=== PATIENT | female | born 1940 | race African-American/Black ===

== ENCOUNTER 2016-09-08 20:47 | Inpatient (IN) ==
[2016-09-08] MEDS ORDERED: DEXAMETHASONE 4 MG/1 ML VIAL IM STA (21:33)
[2016-09-08] MEDS ORDERED: ALBUTEROL 2.5 MG/3 ML NEB RESP TX STA (21:33)
[2016-09-08] MEDS ORDERED: cloNIDine 0.1 MG TABLET PO STA (21:35)
--- NOTE | 2016-09-08 21:38 | Emergency Department Note ---
Maye Brown Hilary, am scribing for, and in the presence of, Rob Tovar MD 21:36. Guy Brown Robert M, MD, personally performed the services described in this documentation, ascribed by Netta Villavicencio in my presence, and it is both accurate and complete . Arrival - Arrival Chief Complaint: Blood Pressure Stated Complaint: shortness of breath ED Nursing Triage Note: Patient is a transfer patient from [facility] for further evaluation of CHF exacerbation. Patients BNP was 6401 at [facility]. Patient has +3 pitting edema to bilateral lower extremities and elevated blood pressure. History of DM, HTN, CVA with right sided weakness, and high cholesterol. Mode of Arrival: Stretcher Limitations: No Limitations Source: Patient, RN Notes Reviewed - History of Present Illness HPI Narrative: Pt is a 76 y/o female brought into the ED via EMS from [facility] for further evaluation of CHF. Pt confirms wheezing and swelling in her feet but denies chest pain. Pts family states that her blood pressure was elevated. Pt has a PMHx of DM, HTN, CVA with right sided weakness, and high cholesterol. No other complaint or problems stated in the ED. Onset (ago): day(s) Consistency: constant Severity: mild Severity scale (1-10): 1 Date of Last Menstrual Period: menopause Allergies/Adverse Reactions: Allergies Allergy/AdvReac Type Severity Reaction Status Date / Time meperidine [From Demerol] AdvReac Severe NUMBNESS Verified 11/02/15 00:30 codeine AdvReac Intermediate Vomiting Verified 11/02/15 00:30 Home Medications: Home Medications Medication Instructions Recorded Confirmed Type Albuterol Neb [Proventil Neb] 0.63 mg RESP TX Q12H 11/02/15 11/04/15 History Fluticasone/Salmeterol 250-50 1 puff INH BID 11/02/15 11/04/15 History [Advair 250-50] Ipratropium/Albuterol Inhaler 1 puff INH BID 11/02/15 11/04/15 History [Combivent Respimat Inhaler] Magnesium 250 mg PO DAILY 11/02/15 11/04/15 History Metformin HCl 1,000 mg PO BID 11/02/15 11/04/15 History Metoprolol Tartrate 50 mg PO BID 11/02/15 11/04/15 History Mirtazapine [Remeron] 30 mg PO BEDTIME 11/02/15 11/04/15 History Mometasone 50 Mcg Nasal [place] 2 sprays BOTH NARES DAILY 11/02/15 11/04/15 History [Nasonex Nasal [place]] Montelukast Tab [Singulair Tab] 10 mg PO BEDTIME 11/02/15 11/04/15 History Pravastatin Sodium 40 mg PO DAILY 11/02/15 11/04/15 History Acetaminophen Tab [Tylenol Tab] 325 mg PO Q4H PRN #0 tablet 11/04/15 11/04/15 Rx Apixaban [Eliquis] 5 mg PO BID tablet 11/04/15 11/04/15 Rx Dextrose 50% [D50] 25 gm IV PRN PRN #0 vial 11/04/15 11/04/15 Rx Glucagon 1 mg IM PRN PRN #0 vial 11/04/15 11/04/15 Rx Pantoprazole Tab [Protonix Tab] 40 mg PO DAILY tablet 11/04/15 11/04/15 Rx Meloxicam [Mobic] 7.5 mg PO BID #60 tablet 11/13/15 Rx amLODIPine [Norvasc] 10 mg PO BID #60 tablet 11/13/15 Rx cloNIDine TAB [Catapres Tab] 0.1 mg PO BID #60 tablet 11/13/15 Rx glipiZIDE XL [Glucotrol Xl] 2.5 mg PO DAILY tablet 11/13/15 Rx Review of System - Review of System 12 point system: reviewed and no additional remarkable complaints except as stated - Review of System Constitutional: Absent: fever Respiratory: Present: wheezing, other (bronchitis) Cardiovascular: Absent: chest pain Musculoskeletal: Present: other (pedal edema) Medical,Surgical,& Family Hx - Medical History Cardio: History of: Hypertension, [place] (5 years ago per pt) HEENT: History of: Eye Problem (cataract surgery to right eye), Dental Problems (wears dentures) Endocrine: History of: Diabetes Mellitus (NIDDM) (po meds at home), Dyslipidemia Respiratory: History of: Bronchitis (hx of) Musculoskeletal: History of: Back/Neck Problems, Musculoskeletal Problems ( knees give out at times) Other: History of: Miscellaneous Medical Problems (morbid obesity) - Surgical History Reproductive Surgeries: Surgical HX of;: Tubal Ligation - Family History Family History: Reports;: Family Diabetes, Family Hypertension (parents) - Social History Smoking Status: Never smoker Frequency of Alcohol Use: None Type of Drug Use: None Exam Vital Signs: Vital Signs Temperature 97.3 F L 09/08/16 20:49 Pulse Rate 86 09/08/16 20:49 Respiratory Rate 22 09/08/16 20:49 Blood Pressure 242/101 09/08/16 20:49 O2 Sat by Pulse Oximetry 100 09/08/16 20:49 - General General appearance: alert, in no apparent distress - Head Head exam: Present: atraumatic, normocephalic - Eye Eye exam: Present: normal appearance, PERRL, EOMI - ENT ENT exam: Present: mucous membranes moist, TM's normal bilaterally. Absent: mucous membranes dry - Neck Neck exam: Present: full ROM, trachea midline. Absent: tenderness - Chest Chest inspection: Present: symmetric chest wall rise. Absent: tenderness - Respiratory Respiratory exam: Present: rhonchi, wheezes - Cardiovascular Cardiovascular exam: Present: regular rate, normal rhythm, normal heart sounds. Absent: murmur, rubs, gallop - Abdominal Exam Abdominal exam: Present: soft, normal bowel sounds. Absent: distention, tenderness - Extremities Exam Extremities exam: Present: full ROM, pedal edema. Absent: tenderness - Back Exam Back exam: Present: full ROM. Absent: tenderness - Neurological Exam Neurological exam: Present: alert, oriented X3, CN II-XII intact. Absent: motor sensory deficit - Psychiatric Psychiatric exam: Present: normal affect, normal mood - Skin Skin exam: Present: warm, dry, intact, normal color. Absent: rash Course - Consultations Consultation #1: Dr. Kt Wong will evaluate and admit the patient. Time: 22:24 Disposition Clinical Impression: Uncontrolled hypertension, Dyspnea, Diabetes type 2, controlled Case discussed with: patient, patient's family Disposition: Still a Patient Condition: Stable Time of Disposition: 22:25
[2016-09-08] MEDS ORDERED: cloNIDine 0.1 MG TABLET ONE (22:03)
[2016-09-08] MEDS ORDERED: DEXAMETHASONE 4 MG/1 ML VIAL ONE (22:04)
[2016-09-08 23:17] LABS: Troponin I Only 0.444 NG/ML (0.00-0.045)
[2016-09-08] MEDS ORDERED: LABETALOL 20 MG/4 ML SYRINGE IV STA (23:31)
[2016-09-09] MEDS ORDERED: LABETALOL 20 MG/4 ML SYRINGE IV ONE ×3 (00:08→14:07)
[2016-09-09] MEDS ORDERED: INSULIN REGULAR 100 UNIT/ML SUBCUT ONE (00:27)
[2016-09-09] MEDS ORDERED: POTASSIUM CHLORIDE 20 MEQ TABLET PO PRN (00:27)
[2016-09-09] MEDS ORDERED: MAGNESIUM SULF RIDER 2 GM in PREMIX 1 EACH IV PRN ×2 (00:30→09:44)
[2016-09-09] MEDS ORDERED: MAGNESIUM SULF RIDER 4 GM in PREMIX 1 EACH IV PRN (00:30)
--- NOTE | 2016-09-09 00:36 | Hospitalist History & Physical ---
Assessment and Plan (1) CHF (congestive heart failure) Status: Acute Current Visit: Yes (2) Diabetes type 2, controlled Status: Acute Assessment and plan: We will admit the patient our service. I cannot find a chest x-ray from outside facility need to order chest x-ray. I am going to diurese her. Going to draw serial troponins. Consult [facility] cardiology she is patient of Dr. Hines' s. Can continue home meds. Have some as needed hydralazine as needed for her blood pressure. Current Visit: Yes Qualifiers: Diabetes mellitus complication status: with neurologic complications Diabetes mellitus complication detail: with autonomic neuropathy Diabetes mellitus fci insulin use: without fci use Qualified Code(s): E11.43 - Type 2 diabetes mellitus with diabetic autonomic (poly)neuropathy (3) Dyspnea Status: Acute Current Visit: Yes (4) Uncontrolled hypertension Status: Acute Current Visit: Yes (5) Hypomagnesemia Status: Acute Current Visit: No (6) Lymphedema of extremity Status: Acute Current Visit: No History of Present Illness Chief complaint: Shortness of breath chest pain and lower extremity edema History of present illness: Ms. Rodriguez is a 76 year old female with past medical history significant for coronary artery disease, stroke, diabetes and reflux who went to [facility] because of chest pain. She is having a burning sensation on the left' s side of her chest the center of her chest and her left arm was hurting. Patient reports shortness of breath at night particularly when she lays down. At times she wakes up during the [place] short winded. She tries nebulizer at home. Without any results and went up to the [facility]. Patient was found to have an elevated blood pressure. Patient was subsequently sent over to our hospital. We have been working on getting her blood pressure under better control in the emergency room. She does not look in acute distress. She has had a mild bump in her troponins. I was consulted to admit her. Patient denies a history of heart failure. She does see Dr. Hines. Home Medications Medication Instructions Recorded Confirmed Type Albuterol Neb [Proventil Neb] 0.63 mg RESP TX Q12H 11/02/15 11/04/15 History Fluticasone/Salmeterol 250-50 1 puff INH BID 11/02/15 11/04/15 History [Advair 250-50] Ipratropium/Albuterol Inhaler 1 puff INH BID 11/02/15 11/04/15 History [Combivent Respimat Inhaler] Magnesium 250 mg PO DAILY 11/02/15 11/04/15 History Metformin HCl 1,000 mg PO BID 11/02/15 11/04/15 History Metoprolol Tartrate 50 mg PO BID 11/02/15 11/04/15 History Mirtazapine [Remeron] 30 mg PO BEDTIME 11/02/15 11/04/15 History Mometasone 50 Mcg Nasal [place] 2 sprays BOTH NARES DAILY 11/02/15 11/04/15 History [Nasonex Nasal [place]] Montelukast Tab [Singulair Tab] 10 mg PO BEDTIME 11/02/15 11/04/15 History Pravastatin Sodium 40 mg PO DAILY 11/02/15 11/04/15 History Acetaminophen Tab [Tylenol Tab] 325 mg PO Q4H PRN #0 tablet 11/04/15 11/04/15 Rx Apixaban [Eliquis] 5 mg PO BID tablet 11/04/15 11/04/15 Rx Dextrose 50% [D50] 25 gm IV PRN PRN #0 vial 11/04/15 11/04/15 Rx Glucagon 1 mg IM PRN PRN #0 vial 11/04/15 11/04/15 Rx Pantoprazole Tab [Protonix Tab] 40 mg PO DAILY tablet 11/04/15 11/04/15 Rx Meloxicam [Mobic] 7.5 mg PO BID #60 tablet 11/13/15 Rx amLODIPine [Norvasc] 10 mg PO BID #60 tablet 11/13/15 Rx cloNIDine TAB [Catapres Tab] 0.1 mg PO BID #60 tablet 11/13/15 Rx glipiZIDE XL [Glucotrol Xl] 2.5 mg PO DAILY tablet 11/13/15 Rx Allergies Allergy/AdvReac Type Severity Reaction Status Date / Time meperidine [From Demerol] AdvReac Severe NUMBNESS Verified 11/02/15 00:30 codeine AdvReac Intermediate Vomiting Verified 11/02/15 00:30 Medical,Surgical,& Family Hx - Medical History Cardio: History of: Hypertension, [place] (5 years ago per pt) HEENT: History of: Eye Problem (cataract surgery to right eye), Dental Problems (wears dentures) Endocrine: History of: Diabetes Mellitus (NIDDM) (po meds at home), Dyslipidemia Respiratory: History of: Bronchitis (hx of) Musculoskeletal: History of: Back/Neck Problems, Musculoskeletal Problems ( knees give out at times) Other: History of: Miscellaneous Medical Problems (morbid obesity) - Surgical History Reproductive Surgeries: Surgical HX of;: Tubal Ligation - Family History Family History: Reports;: Family Diabetes, Family Hypertension (parents) - Social History Smoking Status: Never smoker Frequency of Alcohol Use: None Type of Drug Use: None 12 point system: reviewed and no additional remarkable complaints except as stated Exam - Constitutional Vitals: Period Temp Pulse Resp BP Sys/[place] Pulse Ox Last 24 Hr 97.3 F 70-86 20-22 242/101 99-100 - General General appearance: alert, in no apparent distress - Head Head exam: Present: atraumatic, normocephalic - Eye Eye exam: Present: normal appearance, PERRL, EOMI - ENT ENT exam: Present: mucous membranes moist, TM's normal bilaterally. Absent: mucous membranes dry - Neck Neck exam: Present: full ROM, trachea midline. Absent: tenderness - Chest Chest inspection: Present: symmetric chest wall rise. Absent: tenderness - Respiratory Respiratory exam: Present: Grossly clear with mild wheezes - Cardiovascular Cardiovascular exam: Present: regular rate, normal rhythm, normal heart sounds. - Abdominal Exam Abdominal exam: Present: soft, normal bowel sounds - Extremities Exam Extremities exam: Present: Patient appears to have some element of lymphedema but does have lower extremity edema present - Back Exam Back exam: Present: full ROM. - Neurological Exam Neurological exam: Present: alert, oriented X3, CN II-XII intact. - Psychiatric Psychiatric exam: Present: normal affect, normal mood - Skin Skin exam: Present: warm, dry, intact, normal color. Results - Labs Labs: Labs from outside facility displayed a white count of 9.2 hemoglobin 10.3 hematocrit 31.5 platelets 467 glucose 131 BUN 24 creatinine 1.3 calcium 8.4 sodium 147 potassium 4.4 chloride 109 bicarb 25 CK 60 mm x 2.2 myoglobin 58 magnesium 1.0 troponin I 0.118
[2016-09-09] MEDS ORDERED: ALBUTEROL/IPRATROPIUM 3 ML NEB RESP TX PRN (00:47)
[2016-09-09] MEDS ORDERED: ZALEPLON 5 MG CAPSULE PO PRN (00:47)
[2016-09-09] MEDS ORDERED: hydrALAZINE 20 MG/1 ML VIAL ONE (01:56)
[2016-09-09] MEDS: hydrALAZINE 20 MG/1 ML VIAL IV PRN ×3 (02:00→18:08)
[2016-09-09 02:49] LABS: Risk Ratio 2.65; VLDL CHOLESTEROL 19.2 MG/DL
[2016-09-09] MEDS ORDERED: GLUCAGON 1 MG VIAL IM PRN (03:08)
[2016-09-09] MEDS ORDERED: DEXTROSE 50% 25 GM/50 ML VIAL IV PRN (03:08)
--- NOTE | 2016-09-09 03:16 | EKG Report ---
Stationary ECG Study [facility] ER Test Date: 09/08/2016 9:25:32 PM Pat Name: TRAVON HUSSEIN Department: Room: 285 Gender: F [place] Clerk: : 1940 Requested by: Rob Tovar Order Number: [id number] Reading MD: AMBER DELVALLE Intervals [place] Rate: 69 P: 40 WV: 171 QRS: 40 QRSD: 90 T: -54 QT: 415 QTc: 435 Interpretive Statements SINUS RHYTHM POOR R-WAVE PROGRESSION POOR QUALITY TRACING Electronically Signed On 09-10-16 15:56:29 CDT by AMBER DELVALLE [email or web address]
[2016-09-09] MEDS: NITROGLYCERIN 2% OINT 1 INCH/GM PACK TOP SCH ×3 (05:16→18:10)
[2016-09-09 06:08] LABS: Calcium 8.4 MG/DL (8.5-10.1); Potassium 4.5 MMOL/L (3.5-5.1)
[2016-09-09] MEDS: ALBUTEROL/IPRATROPIUM 3 ML NEB RESP TX SCH ×2 (07:25→21:16)
[2016-09-09] MEDS ORDERED: FUROSEMIDE 40 MG/4 ML VIAL IV SCH (08:00)
--- NOTE | 2016-09-09 08:20 | XRay Report ---
History is short of breath Comparison 09/08/2016 The heart and vessels are enlarged There are slight increasing diffuse bilateral interstitial and patchy pulmonary opacities. No more focal consolidation seen Tiny underlying effusions present Impression: Slight worsening of pulmonary edema PROCEDURE INTERPRETED AT [facility] DEPARTMENT OF RADIOLOGY Final Report Signed by: Dr. Madhavi Devries
--- NOTE | 2016-09-09 08:58 | EKG Report ---
Stationary ECG Study [facility] Test Date: 09/09/2016 9:01:23 AM Pat Name: TRAVON HUSSEIN Department: Room: 285 Gender: F Gold Buyer: : 1940 Requested by: Danny Deleon Order Number: [id number] Reading MD: AMBER DELVALLE Intervals [place] Rate: 76 P: 56 PA: 174 QRS: -42 QRSD: 91 T: 97 QT: 418 QTc: 449 Interpretive Statements SINUS RHYTHM MARKED LEFT AXIS DEVIATION POOR R-WAVE PROGRESSION Electronically Signed On 09-10-16 16:06:09 CDT by AMBER DELVALLE [email or web address]
[2016-09-09] MEDS ORDERED: hydrALAZINE 25 MG TABLET PO SCH (09:00)
[2016-09-09] MEDS ORDERED: PANTOPRAZOLE 40 MG TABLET PO SCH ×2 (09:00)
--- NOTE | 2016-09-09 09:24 | Cardiology Consult Note ---
Assessment and Plan - Time spent with patient Time spent with patient: Greater than 30 minutes (due to assessment, plan, and documentation) (1) Chest pain Status: Acute Assessment and plan: See plan of care listed below. Current Visit: Yes (2) CHF (congestive heart failure) Status: Acute Assessment and plan: See plan of care listed below. Current Visit: Yes Qualifiers: Congestive heart failure type: unspecified congestive heart failure type Congestive heart failure chronicity: unspecified congestive heart failure chronicity Qualified Code(s): I50.9 - Heart failure, unspecified (3) History of coronary artery disease Status: Chronic Assessment and plan: See plan of care listed below. Current Visit: Yes (4) Diabetes type 2, controlled Status: Chronic Assessment and plan: See plan of care listed below. Current Visit: Yes Qualifiers: Diabetes mellitus complication status: with neurologic complications Diabetes mellitus complication detail: with autonomic neuropathy Diabetes mellitus intermediate accountant insulin use: without intermediate accountant use Qualified Code(s): E11.43 - Type 2 diabetes mellitus with diabetic autonomic (poly)neuropathy (5) Uncontrolled hypertension Status: Acute Assessment and plan: See plan of care listed below. Current Visit: Yes (6) Hypomagnesemia Status: Acute Assessment and plan: See plan of care listed below. Current Visit: Yes (7) Obesity Status: Chronic Assessment and plan: See plan of care listed below. Current Visit: Yes History of Present Illness - Data of Consult Patient: new to practice (seen in the remote past by Dr. 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 Rodriguez is a 76 year old female with a history of diffuse small vessel CAD s/p NSTEMI, uncontrolled hypertension, type 2 diabetes mellitus , dyslipidemia, GERD, prior stroke. Last heart catheterization was 01/21/[address] Horn which revealed diffuse small vessel disease with epicardial stenosis in a branch of the diagonal approaching 70-80% and a mild smooth 20-30% stenosis in the proximal circumflex. On 11/02/15, echocardiogram revealed EF of 55%, moderate LVH, mild diastolic dysfunction, and trace to mild aortic insufficiency. She was transferred to our facility from [facility] for further evaluation of shortness of breath and chest pain. She was diagnosed with CHF and was noted to have a BNP of 907 on admission. We were consulted to see her. Ms. Sales tells me that she only takes Lasix but is unable to walk very well and changed her dose of Lasix that she was taking because it makes her pee too much. She also tells me that she believes she is developing bronchitis and has noticed some wheezing for the past 3 days. She reports that she takes at home nebulizer treatments which seemed to help this. She does admit that the day before yesterday she noticed a left chest wall burning sensation that lasted for a few minutes before going away on its own. This is accompanied by left arm pain that she reports felt like "arthritis." She reports she had an additional episode of chest discomfort yesterday that lasted close to an hour but improved when she took Tylenol and aspirin. She can identify no aggravating or alleviating factors. It is nonreproducible to movement, palpation, or deep breath. She tells me that this is not exactly similar to her last NH. Previously she notes that she had nausea and vomiting but has had none in the past several days. She reports associated symptoms of recent dizziness, easy fatigability, bilateral lower extremity edema, and palpitations. Since her arrival at [facility], she has had a steady rise in her troponin. Troponin peak this morning is 1.09. Her creatinine 0.9, potassium 4.5, magnesium 1.3. She is receiving IV magnesium replacement. Her blood pressure was 208/78 this morning. We will continue to adjust her medicines for optimal blood pressure control. ASSESSMENT/PLAN: 1. CHEST PAIN - She presents with some atypical features of chest pain; however , she has had a steady rise in her troponin with current peak of 1.09. Given her history and current presentation, it is felt that she would benefit from repeat cardiac catheterization to further evaluate her coronary anatomy. After discussing with Dr. Banegas, she will be scheduled for left heart cath with possible PCI today. 2. CHF - Echocardiogram is pending. Will continue offloading with diuretic therapy. 3. HISTORY OF CAD - Last heart catheterization was 01/21/[address] Horn which revealed diffuse small vessel disease with epicardial stenosis in a branch of the diagonal approaching 70-80% and a mild smooth 20-30% stenosis in the proximal circumflex. 4. UNCONTROLLED HTN - Will continue to monitor and adjust accordingly. 5. TYPE 2 DIABETES MELLITUS - She has been started on accuchecks ACHS with sliding scale insulin. 6. HYPOMAGNESEMIA - She has been started on IV magnesium replacement. 7. OBESITY - Chronic. CC: Sue King MD - Home Medications and Allergies Home Medications: Home Medications Medication Instructions Recorded Confirmed Type Fluticasone/Salmeterol 250-50 1 puff INH BID 11/02/15 09/09/16 History [Advair 250-50] Ipratropium/Albuterol Inhaler 1 puff INH BID 11/02/15 09/09/16 History [Combivent Respimat Inhaler] Magnesium 250 mg PO DAILY 11/02/15 09/09/16 History Metformin HCl 1,000 mg PO BID 11/02/15 09/09/16 History Metoprolol Tartrate 50 mg PO BID 11/02/15 09/09/16 History Mirtazapine [Remeron] 30 mg PO BEDTIME 11/02/15 09/09/16 History Mometasone 50 Mcg Nasal Crane 2 sprays BOTH NARES DAILY 11/02/15 09/09/16 History [Nasonex Nasal Crane] Montelukast Tab [Singulair Tab] 10 mg PO BEDTIME 11/02/15 09/09/16 History Pravastatin Sodium 40 mg PO DAILY 11/02/15 09/09/16 History Acetaminophen Tab [Tylenol Tab] 325 mg PO Q4H PRN #0 tablet 11/04/15 09/09/16 Rx Meloxicam [Mobic] 7.5 mg PO BID #60 tablet 11/13/15 09/09/16 Rx Aspirin 81 mg PO DAILY 09/09/16 09/09/16 History Cetirizine Tab [ZyrTEC Tab] 10 mg PO DAILY 09/09/16 09/09/16 History Clopidogrel [Plavix] 75 mg PO DAILY 09/09/16 09/09/16 History Furosemide 80 mg PO BID 09/09/16 09/09/16 History Gabapentin Cap/Tab [Neurontin 300 mg PO BEDTIME 09/09/16 09/09/16 History Cap/Tab] Gemfibrozil [Lopid] 600 mg PO BIDAC 09/09/16 09/09/16 History Losartan/Hydrochlorothiazide 1 each PO DAILY 09/09/16 09/09/16 History [Losartan-Hctz 100-12.5 mg Tab] Nabumetone [Relafen] 500 mg PO BID 09/09/16 09/09/16 History Omeprazole 20 mg PO DAILY 09/09/16 09/09/16 History Promethazine Tab [Phenergan Tab] 25 mg PO Q4H 09/09/16 09/09/16 History Ranitidine Tab [Zantac Tab] 150 mg PO DAILY 09/09/16 09/09/16 History Turmeric Root Extract [Turmeric] 150 mg PO DAILY 09/09/16 09/09/16 History cloNIDine TAB [Catapres Tab] 0.1 mg PO BEDTIME 09/09/16 09/09/16 History hydrALAZINE TAB [Apresoline Tab] 25 mg PO BID 09/09/16 09/09/16 History traZODone [Desyrel] 50 mg PO BEDTIME 09/09/16 09/09/16 History Allergies/Adverse Reactions: Allergies Allergy/AdvReac Type Severity Reaction Status Date / Time meperidine [From Demerol] AdvReac Severe NUMBNESS Verified 11/02/15 00:30 codeine AdvReac Intermediate Vomiting Verified 11/02/15 00:30 Review of systems: - Constitutional: Present: fatigue, As per HPI. Absent: anorexia, chills, daytime sleepiness, excessive sweating, fever(s), frequent falls, headache(s), increased appetite, lethargy, malaise, night sweats, stops breathing during sleep, weakness, weight gain, weight loss. - EENT Eyes: Present: As per HPI. Absent: blurry vision, diplopia, loss of vision Ears: Present: As per HPI. Absent: decreased hearing, ear discharge, ear pain Nose, mouth and throat: Present: nasal congestion, sinus pressure, As per HPI. Absent: dysphagia, epistaxis, headache(s), hoarseness, lip swelling, neck mass, neck pain, sore throat, throat swelling, tongue swelling, vertigo - Cardiovascular: Present: chest pain at rest, dyspnea, dyspnea on exertion, edema, palpitations, radiating jaw, neck or arm pain, as per HPI. Absent: chest pain with activity, claudication, diaphoresis, lightheadedness, orthopnea , PND - Respiratory: Present: dyspnea, dyspnea on exertion, cough, wheezing, as per HPI. Absent: hemoptysis, snoring, pain on inspiration - Gastrointestinal: Present: As per HPI. Absent: abdominal pain, bloating, change in bowel habits, constipation, diarrhea, heartburn, hematemesis, hematochezia, loose stools, melena, nausea, vomiting - Genitourinary: Present: As per HPI. Absent: difficulty urinating, dysuria, flank pain, hematuria, nocturia, urinary frequency, urinary incontinence - Musculoskeletal: Present: As per HPI. Absent: arthralgias, back pain, joint swelling, limited range of motion, muscle cramps, muscle weakness, myalgias - Neurological: Present: dizziness, As per HPI. Absent: abnormal gait, abnormal speech, behavioral changes, confusion, convulsions, disequilibrium, focal weakness, frequent falls, headache(s), memory loss, numbness, paresthesias, radicular pain, syncope, tremor(s) - Psychiatric: Present: As per HPI. Absent: anxiety, confusion, depression, panic attacks - Endocrine: Present: fatigue, As per HPI. Absent: cold intolerance, heat intolerance, polydipsia, polyphagia - Hematologic/Lymphatic: Present: As per HPI. Absent: easy bleeding, easy bruising, lymphadenopathy Medical,Surgical,& Family Hx - Medical History Cardio: History of: CAD (diffuse small vessel disease), Hypertension, NH (5 years ago per pt) HEENT: History of: Eye Problem (cataract surgery to right eye), Dental Problems (wears dentures) Endocrine: History of: Diabetes Mellitus (NIDDM) (po meds at home), Dyslipidemia Respiratory: History of: Bronchitis (hx of) Musculoskeletal: History of: Back/Neck Problems, Musculoskeletal Problems ( knees give out at times) Other: History of: Miscellaneous Medical Problems (morbid obesity) - Surgical History Reproductive Surgeries: Surgical HX of;: Tubal Ligation - Family History Family History: Reports;: Family Diabetes, Family Hypertension (parents) - Social History Smoking Status: Never smoker Frequency of Alcohol Use: None Type of Drug Use: None Marital Status: Lives With:: Children Functional capacity: uses cane/walker Physical Examination Vital Signs Temp Pulse Resp BP Pulse Ox 97.3 F L 86 22 242/101 100 09/08/16 20:49 07/19/17 20:49 09/08/16 20:49 09/08/16 20:49 09/08/16 20:49 Exam: General appearance: Pleasant and cooperative. Obese, no acute distress. - Head Head exam: Present: normal inspection, normocephalic, atraumatic. Absent: hematoma, laceration - Eye Eye exam: Present: EOMI. Absent: conjunctival injection, nystagmus, periorbital swelling, scleral icterus, laceration to eyelids Pupils: Present: PERRL. Absent: constricted, dilated, fixed, irregular, unequal - ENT ENT exam: Present: normal exam, normal external ear exam - Neck Neck exam: Present: normal inspection. Absent: lymphadenopathy, meningismus, tenderness, thyromegaly - Respiratory Respiratory exam: Present: Bibasilar rales posteriorly, otherwise clear to auscultation bilaterally. Absent: accessory muscle use, chest wall tenderness - Cardiovascular Cardiovascular exam: Present: regular rate and rhythm. Absent: carotid bruit, gallop, rubs, murmur - GI/Abdominal GI/Abdominal exam: Present: normal bowel sounds, soft. Absent: distended, firm , guarding, hernia, mass, tenderness, rebound. - Extremities Exam Extremities exam: Present: normal inspection, normal capillary refill. Upper extremity pulses 2+. Lower extremity pulses 2+, 3+ pitting edema. Absent: calf tenderness -Musculoskeletal Exam Musculoskeletal: Present: No Fluid Collection, No Pain, Normal Range of Motion - Back Exam Back exam: Present: normal inspection. Absent: muscle spasm, vertebral tenderness - Neurological Exam Neurological exam: Present: alert, oriented X3, grossly intact without resting or essential tremor - Psychiatric Psychiatric exam: Present: normal affect, normal mood - Skin Skin exam: Present: normal color, warm, dry, intact. Absent: cyanosis, diaphoretic, rash, urticaria Result/EKG - Labs CBC & BMP: 09/09/16 04:52 Lab Results: I have reviewed the past 24 hour labs Labs: Laboratory Results - last 24 hr 09/08/16 09/08/16 09/09/16 22:14 22:14 01:31 Sodium Potassium Chloride Carbon Dioxide Anion Gap BUN Creatinine GFR Calculation BUN/Creatinine Ratio Glucose POC Glucose Calculated Osmolality Calcium Magnesium Total Creatine Kinase 75 CK-MB (CK-2) 4.5 H Troponin I 0.444 H 0.892 H D B-Natriuretic Peptide 907 H Triglycerides Cholesterol LDL Cholesterol VLDL Cholesterol HDL Cholesterol Heart Disease Risk Ratio 09/09/16 09/09/16 09/09/16 01:31 01:31 04:52 Sodium Potassium Chloride Carbon Dioxide Anion Gap BUN Creatinine GFR Calculation BUN/Creatinine Ratio Glucose POC Glucose Calculated Osmolality Calcium Magnesium 1.3 L Total Creatine Kinase CK-MB (CK-2) Troponin I 0.951 H B-Natriuretic Peptide Triglycerides 96 Cholesterol 151 LDL Cholesterol 74.0 VLDL Cholesterol 19.2 HDL Cholesterol 57 Heart Disease Risk Ratio 2.65 09/09/16 09/09/16 09/09/16 04:52 06:50 07:25 Sodium 143 Potassium 4.5 Chloride 110 H Carbon Dioxide 22 Anion Gap 15.5 H BUN 28 H Creatinine 0.90 GFR Calculation 99 BUN/Creatinine Ratio 31.00 H Glucose 162 H POC Glucose 184 H Calculated Osmolality 294.0 Calcium 8.4 L Magnesium Total Creatine Kinase CK-MB (CK-2) Troponin I 1.090 H B-Natriuretic Peptide Triglycerides Cholesterol LDL Cholesterol VLDL Cholesterol HDL Cholesterol Heart Disease Risk Ratio - EKG EKG results: interpreted by me, sinus rhythm
--- NOTE | 2016-09-09 09:32 | Hospitalist Progress Note ---
Assessment and Plan (1) CHF (congestive heart failure) Status: Acute Assessment and plan: Continue diuresis with IV Lasix. Add Aldactone Echo October 2015 MPRESSIONS 1. Left ventricle is normal size and systolic function with ejection fraction 55%. There is at least moderate concentric left ventricular hypertrophy with mild diastolic dysfunction. 2. Other cardiac chambers overall are normal size. 3. There is some posterior mitral calcification but otherwise functioning normal. 4. Aortic valve is overall normal with trace to mild insufficiency. 5. There is no gross mass or thrombus noted that would be a source of emboli. Current Visit: Yes Qualifiers: Congestive heart failure type: unspecified congestive heart failure type Congestive heart failure chronicity: unspecified congestive heart failure chronicity Qualified Code(s): I50.9 - Heart failure, unspecified (2) Diabetes type 2, controlled Status: Acute Current Visit: Yes Qualifiers: Diabetes mellitus complication status: with neurologic complications Diabetes mellitus complication detail: with autonomic neuropathy Diabetes mellitus skilled nursing insulin use: without skilled nursing use Qualified Code(s): E11.43 - Type 2 diabetes mellitus with diabetic autonomic (poly)neuropathy (3) Hypertension Status: Acute Current Visit: No Qualifiers: Hypertension type: essential hypertension Qualified Code(s): I10 - Essential (primary) hypertension (4) Morbid obesity Status: Chronic Current Visit: Yes Hospitalist: Subjective Interval history: Patient seen and examined. No acute events overnight. Case discussed with nursing staff. Labs reviewed. The patient was seen and examined with her daughter at the bedside. She reports reducing her Lasix dose proximally 1-2 weeks ago to 80 mg once daily. She has been swelling and accumulating fluid since that time. Exam - Constitutional Vitals: Period Temp Pulse Resp BP Sys/Castañeda Pulse Ox Last 24 Hr 96.9 F-98.6 F 70-86 16-22 165-242/71-101 94-100 Exam: Constitutional System: No distress. No tremulousness. Morbidly obese Head: Normocephalic, atraumatic. Ears, Nose and Throat System: No pain or tenderness. No epistaxis or discharge Eyes System: Pupils equal, round, and reactive. Extraocular muscles intact. Neck: Supple, without adenopathy, No jugular venous distention. No thyromegaly, neck mass, or prior surgery apparent. Respiratory System: Chest rales at the bases to auscultation. Cardiovascular System: Heart with regular rate and rhythm. No murmur. GI System: Abdomen soft, nontender. Normo active bowel sounds present. Musculoskeletal System: limbs with 3+ pitting pedal edema. Full distal pulses. Neurological System: No discernable sensory deficit. No aphasia Psychiatric System: Conversation is rational Results - Labs CBC & BMP: 09/09/16 04:52 Lab Results: I have reviewed the past 24 hour labs - Diagnostic Findings Procedure: Chest x-ray: report reviewed by me
[2016-09-09] MEDS ORDERED: diphenhydrAMINE CAP 25 MG CAPSULE PO ONE (09:44)
[2016-09-09] MEDS ORDERED: POTASSIUM CHLORIDE RIDER 10 MEQ in PREMIX 1 EACH IV PRN (09:44)
[2016-09-09] MEDS ORDERED: DIAZEPAM 5 MG TABLET PO ONE (10:00)
[2016-09-09] MEDS ORDERED: SODIUM CHLORIDE 0.45% 1,000 ML IV SCH (10:00)
[2016-09-09] MEDS: FUROSEMIDE 40 MG/4 ML VIAL IV SCH ×2 (11:05→18:09)
[2016-09-09] MEDS: INSULIN REGULAR 100 UNIT/ML SUBCUT SCH ×4 (11:15→21:57)
[2016-09-09] MEDS ORDERED: LIDOCAINE 1% 20 ML VIAL ONE (12:26)
[2016-09-09] MEDS ORDERED: HEPARIN/NACL 0.9% 2 UNITS/ML 1,000 ML IV ONE (12:26)
[2016-09-09] MEDS: CLOPIDOGREL 75 MG TABLET PO SCH (13:08)
[2016-09-09] MEDS: FAMOTIDINE 20 MG TABLET PO SCH (13:09)
[2016-09-09] MEDS: PRAVASTATIN 40 MG TABLET PO SCH (13:09)
[2016-09-09] MEDS: ENOXAPARIN 40 MG/0.4 ML SYRINGE SUBCUT SCH (13:10)
[2016-09-09] MEDS: CETIRIZINE 10 MG TABLET PO SCH (13:10)
[2016-09-09] MEDS: ASPIRIN EC 81 MG TABLET PO SCH (13:10)
[2016-09-09] MEDS: LOSARTAN 50 MG TABLET PO SCH (13:10)
--- NOTE | 2016-09-09 13:17 | ECHO Report ---
Gerri Rodriguez Exam Date: 09/09/2016 07:30 Referring Physician: Technologist: Mindi Love RDCS Age: 76 Ht (in): 67 Wt (lb): 280 Gender: F Exam Location: [facility] Echo Indications: Chest pain, unspecified, Dyspnea, unspecified, Heart failure, unspecified, Essential (primary) hypertension, Edema, unspecified, NIDDM, CAD, Morbid (severe) obesity due to excess calories BP: 165 / 71 HR: 74 Rhythm: Sinus Technical Quality: IMPRESSIONS Normal chamber sizes 2+ concentric LVH Normal LV systolic function with ejection fraction estimated 55% without segmental wall motion mildly Mitral annular calcification 2-3+ aortic regurgitation 1+ tricuspid regurgitation with RVSP 43 mmHg plus RAP suggesting at least moderate pulmonary hypertension Grade 1 diastolic dysfunction MEASUREMENTS (Male / Female) Normal Values 2D ECHO LV Diastolic Diameter PLAX 4.8 cm 4.2 - 5.9 / 3.9 - 5.3 cm LV Systolic Diameter PLAX 3.4 cm LV Fractional Shortening PLAX 29.3 % IVS Diastolic Thickness 1.6 cm 0.6 - 1.0 / 0.6 - 0.9 cm LVPW Diastolic Thickness 1.6 cm 0.6 - 1.0 / 0.6 - 0.9 cm RV Internal Dim ED PLAX 3.2 cm Aortic Root Diameter 3.0 cm LA Systolic Diameter LX 3.9 cm 3.0 - 4.0 / 2.7 - 3.8 cm DOPPLER TR Peak Velocity 413.0 cm/s TR Peak Gradient 68.2 mmHg FINDINGS Left Ventricle Normal left ventricular cavity size. Moderate left ventricular hypertrophy. Left ventricular ejection fraction is estimated at 55 %. Right Ventricle The right ventricle is normal in size and function. Right Atrium The right atrium is mildly enlarged. Left Atrium The left atrium is mildly enlarged. Mitral Valve Mildly thickened mitral valve. Trace to mild mitral valve regurgitation. Aortic Valve Trileaflet aortic valve. No aortic valve stenosis. Mild aortic valve regurgitation. Tricuspid Valve Morphologically normal tricuspid valve. Mild tricuspid valve regurgitation. Tricuspid regurgitation velocities suggest a PAP of 78 mmHg. Pulmonic Valve Morphologically normal pulmonic valve. Mild pulmonary valve regurgitation. Pericardium Normal pericardium without effusion. Aorta Normal ascending aorta dimension. Victor Hugo Krause (Electronically Signed) Final Date: 09 September 2016 13:16
[2016-09-09] MEDS ORDERED: NITROGLYCERIN DRIP 50 MG/250 ML BOTTLE IV ONE (13:28)
[2016-09-09] MEDS ORDERED: HYDROmorphone 2 MG/1 ML VIAL ONE (13:28)
[2016-09-09] MEDS ORDERED: MIDAZOLAM 2 MG/2 ML VIAL ONE (13:29)
[2016-09-09] MEDS ORDERED: VERAPAMIL 5 MG/2 ML VIAL ONE (13:29)
--- NOTE | 2016-09-09 14:17 | Cardiac Catheterization ---
Date of Procedure:: 09/09/16 Procedure: CLINICAL HISTORY: The patient presented with symptoms concerning for angina and a mild bump in cardiac troponin. She is undergoing cardiac catheterization at this time for definitive coronary artery assessment possible revascularization. PROCEDURES PERFORMED: 1. Right radial percutaneous arteriotomy 2. Left heart catheterization 3. Resting hemodynamics 4. Left ventriculography. 5. Coronary arteriography 6. Hemoband placement DESCRIPTION OF PROCEDURE: After obtaining informed consent, the patient was taken to the slab puller, prepped and draped in the usual sterile manner. We accessed the right radial artery using modified Seldinger technique in the usual fashion. We placed a 6-Iraqi slim sheath without difficulty. We then used a Tig catheter to engage the right coronary and left main coronary arteries to perform angiography in multiple orthogonal views. There were no problems or complications during the procedure. We then used an angled pigtail catheter to perform a left heart catheterization with left ventriculogram and pressure measurement in the usual fashion. After removing the catheter, we placed a HemoBand and removed the sheath without difficulty. There were no problems during the case. HEMODYNAMICS: Please see the accompanying data sheet. CORONARIES: The left main coronary artery is a large-caliber vessel which bifurcates into the left anterior descending and left circumflex coronary arteries. The left main coronary artery is angiographically free of significant obstructive disease. The left circumflex coronary artery is a a large-caliber vessel which gives off a tiny first obtuse marginal branch a large second obtuse marginal and a large posterior lateral system. There is an area of stenosis of 40% or so in the midportion of the circumflex artery, but the vessel is greater than 4 mm in diameter and this is not flow-limiting. The remainder of the vessel has mild luminal irregularities but no significant focal obstruction. The left anterior descending is a moderate to large caliber vessel which gives off a moderate-sized diagonal branch. There are mild luminal irregularities in the left anterior descending coronary artery. There may be a stenosis of 60-70 % near the apex but this is extremely distal and the vessel was pretty small at this location. The right coronary artery is a large-caliber vessel which gives off the posterior descending artery and a posterior lateral system. The right coronary artery is angiographically free of significant obstructive disease. LEFT VENTRICULOGRAPHY: Left ventriculogram shows left ventricular ejection fraction of approximately 50%. The apex is mildly hypokinetic. IMPRESSION: 1. I do not see any significant focal obstructive disease in need of revascularization. The worst area of stenosis is in the extreme distal LAD near the apex. At this point, I think medical management is best. Her other coronary arteries do not show any significant obstruction. 2. Left ventricular ejection fraction is preserved with mild wall motion abnormality as described above. 3. The patient had marked hypertension during the case.. PLAN: I do not think the patient needs any sort of revascularization at this time. We will optimize her medical management and risk factor modification. Anesthesia: minimal conscious sedation Surgeon / Physician: Chad Banegas Estimated blood loss: minimal Condition: stable Disposition: floor - Medications / Follow-up
[2016-09-09] MEDS ORDERED: SODIUM CHLORIDE 0.9% 1,000 ML IV SCH (14:30)
[2016-09-09] MEDS: GEMFIBROZIL 600 MG TABLET PO SCH ×2 (15:50→18:10)
[2016-09-09] MEDS: FLUTICASONE/SALMETEROL 250-50 DISKUS 14 DOSE INH SCH ×2 (15:50→22:14)
[2016-09-09] MEDS: hydroCHLOROthiazide 12.5 MG CAPSULE PO SCH (15:51)
[2016-09-09] MEDS: SPIRONOLACTONE 25 MG TABLET PO SCH ×2 (15:53→21:47)
[2016-09-09] MEDS: NABUMETONE 500 MG TABLET PO SCH ×2 (15:54→22:17)
[2016-09-09] MEDS: hydrALAZINE 25 MG TABLET PO SCH ×2 (15:54→21:47)
[2016-09-09] MEDS ORDERED: traZODone 50 MG TABLET PO SCH (21:00)
[2016-09-09] MEDS ORDERED: CARVEDILOL 12.5 MG TABLET PO SCH (21:00)
[2016-09-09] MEDS ORDERED: GABAPENTIN 300 MG CAPSULE PO SCH (21:00)
[2016-09-09] MEDS ORDERED: cloNIDine 0.1 MG TABLET PO SCH (21:00)
[2016-09-10] MEDS: NITROGLYCERIN 2% OINT 1 INCH/GM PACK TOP SCH ×3 (00:20→14:38)
[2016-09-10 05:20] LABS: Basophils % 0.5 % (0.0-0.8); Eosinophils # 0.3 10*3/uL (0.0-0.87); Hemoglobin 9.1 GM/DL (12.0-16.0); Immature Granulocytes % 0.8 %; Immature Granulocytes Absolute 0.07 #; Lymphocytes # 1.9 10*3/uL (1.4-4.0); Mean Corpuscular HGB Conc 33.7 GM/DL (32-36); Mean Corpuscular Hemoglobin 30 PG (27-34); Mean Corpuscular Volume 89.1 FL (87-102); Mean Platelet Volume 10.4 FL (9.6-12.0); Monocytes # 0.8 10*3/uL (0.11-0.8); Monocytes % 10.1 % (1.7-12.7); Neutrophils # 5.2 10*3/uL (1.4-7.4); Neutrophils % 62.6 % (38.7-73.9); Platelet Count 410 T/CUMM (130-400); Red Blood Count 3.03 MC/CUMM (3.8-5.5); Red Cell Distribution Width 13.4 % (9.3-17.3); White Blood Count 8.3 T/CUMM (4-12)
[2016-09-10 05:59] LABS: Calcium 8.4 MG/DL (8.5-10.1); Osmolality,Calculated 285.4 MOS/KG (273-304); Potassium 3.7 MMOL/L (3.5-5.1)
[2016-09-10] MEDS: ALBUTEROL/IPRATROPIUM 3 ML NEB RESP TX SCH (06:59)
--- NOTE | 2016-09-10 07:43 | EKG Report ---
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
[2016-09-10] MEDS ORDERED: MAGNESIUM SULF RIDER 2 GM in PREMIX 1 EACH IV ONE (08:39)
[2016-09-10] MEDS ORDERED: CARVEDILOL 25 MG TABLET PO SCH (08:42)
[2016-09-10] MEDS ORDERED: POTASSIUM CHLORIDE 20 MEQ TABLET PO SCH (09:00)
[2016-09-10] MEDS ORDERED: ASCORBIC ACID 500 MG TABLET PO SCH (09:00)
[2016-09-10] MEDS: LOSARTAN 50 MG TABLET PO SCH (09:48)
[2016-09-10] MEDS: ASPIRIN EC 81 MG TABLET PO SCH (09:49)
[2016-09-10] MEDS: NABUMETONE 500 MG TABLET PO SCH (09:50)
[2016-09-10] MEDS: GEMFIBROZIL 600 MG TABLET PO SCH (09:50)
[2016-09-10] MEDS: FAMOTIDINE 20 MG TABLET PO SCH (09:51)
[2016-09-10] MEDS: CETIRIZINE 10 MG TABLET PO SCH (09:52)
[2016-09-10] MEDS: PRAVASTATIN 40 MG TABLET PO SCH (09:52)
[2016-09-10] MEDS: hydroCHLOROthiazide 12.5 MG CAPSULE PO SCH (09:52)
[2016-09-10] MEDS: CLOPIDOGREL 75 MG TABLET PO SCH (09:53)
[2016-09-10] MEDS: ENOXAPARIN 40 MG/0.4 ML SYRINGE SUBCUT SCH (09:53)
[2016-09-10] MEDS: FLUTICASONE/SALMETEROL 250-50 DISKUS 14 DOSE INH SCH (09:54)
[2016-09-10] MEDS: FUROSEMIDE 40 MG/4 ML VIAL IV SCH (09:59)
[2016-09-10] MEDS: INSULIN REGULAR 100 UNIT/ML SUBCUT SCH ×2 (10:02→14:38)
[2016-09-10] MEDS: SPIRONOLACTONE 25 MG TABLET PO SCH (10:07)
--- NOTE | 2016-09-10 11:21 | Cardiology Progress Note ---
Assessment and Plan (1) Chest pain Status: Acute Assessment and plan: The symptoms have resolved and not recurred. I am suspicious she may have had a transient arrhythmia that may have contributed. Her rhythm has been stable. We are correcting her electrolytes and optimizing her blood pressure. She did not have any significant focal obstructive disease in need of revascularization on cardiac catheterization. From my standpoint, she could go home on her new medical regimen which should control her blood pressure and rhythm better. She can follow-up with her primary laborer shaft sinking Dr. Horn on a routine basis in a couple of weeks with a CBC, CMP, magnesium, and EKG. Current Visit: Yes (2) Dyspnea Status: Acute Assessment and plan: This is likely multifactorial related to morbid obesity, severe hypertension, deconditioning, as well as perhaps transient arrhythmia. This is much better now. Current Visit: Yes (3) Hypomagnesemia Status: Acute Current Visit: Yes (4) Uncontrolled hypertension Status: Acute Assessment and plan: Her blood pressure is dramatically better with medication adjustments. I would continue her new regimen at home and I think this will keep it better control. Current Visit: Yes (5) Diabetes type 2, controlled Status: Chronic Current Visit: Yes Qualifiers: Diabetes mellitus complication status: with neurologic complications Diabetes mellitus complication detail: with autonomic neuropathy Diabetes mellitus rat exterminator insulin use: without rat exterminator use Qualified Code(s): E11.43 - Type 2 diabetes mellitus with diabetic autonomic (poly)neuropathy (6) History of coronary artery disease Status: Chronic Current Visit: Yes (7) Morbid obesity Status: Chronic Current Visit: Yes Cardiology - PN: Subj Interval history: The patient is feeling well today. Her breathing and edema are better. She has not had any further chest pain. She denies any palpitations. Her catheterization did not show any high-grade coronary artery disease in need of revascularization yesterday. In talking with her, she had some palpitations prior to the chest pain symptoms so I am suspicious that she may have had a transient arrhythmia which may have contributed to the mild increased cardiac enzymes secondary to supply demand ischemia. She did have a low potassium and magnesium level and we are repleting these. I have made some adjustments in her medical regimen which I think will help with her blood pressure and rhythm. Clinically, she is dramatically better and I think she could probably go home today if she is otherwise ready. Current Medications Albuterol/Ipratropium (Duoneb) 3 ml RESP TX RT Q6H PRN PRN Reason: Shortness of Breath/Wheezing Albuterol/Ipratropium (Duoneb) 3 ml RESP TX RT BID [facility] Last Admin: 09/10/16 06:59 Dose: 3 ml Ascorbic Acid (Vitamin C Tab) 1,000 mg PO BID [facility] Last Admin: 09/10/16 09:51 Dose: 1,000 mg Aspirin () 81 mg PO DAILY [facility] Last Admin: 09/10/16 09:49 Dose: 81 mg Carvedilol (Coreg) 25 mg PO BID [facility] Last Admin: 09/10/16 09:53 Dose: 25 mg Cetirizine HCl (Zyrtec Tab) 10 mg PO DAILY [facility] Last Admin: 09/10/16 09:52 Dose: 10 mg Clonidine HCl (Catapres Tab) 0.1 mg PO BEDTIME [facility] Last Admin: 09/09/16 21:47 Dose: 0.1 mg Clopidogrel Bisulfate (Plavix) 75 mg PO DAILY [facility] Last Admin: 09/10/16 09:53 Dose: 75 mg Dextrose/Water (D50) 25 gm IV PRN PRN PRN Reason: Hypoglycemia with IV access Enoxaparin Sodium (Lovenox) 40 mg SUBCUT Q24H [facility] Last Admin: 09/10/16 09:53 Dose: 40 mg Famotidine (Pepcid Tab) 20 mg PO DAILY [facility] Last Admin: 09/10/16 09:51 Dose: 20 mg Furosemide (Lasix Inj) 80 mg IV BID DIURETIC [facility] Last Admin: 09/10/16 09:59 Dose: 80 mg Gabapentin (Neurontin Cap/Tab) 300 mg PO BEDTIME [facility] Last Admin: 09/09/16 21:47 Dose: Not Given Gemfibrozil (Lopid) 600 mg PO BIDAC [facility] Last Admin: 09/10/16 09:50 Dose: 600 mg Glucagon () 1 mg IM PRN PRN PRN Reason: Hypoglycemia w/o IV access Hydralazine HCl (Apresoline Inj) 10 mg IV Q1H PRN PRN Reason: Hypertension Last Admin: 09/09/16 18:08 Dose: 10 mg Hydrochlorothiazide () 12.5 mg PO DAILY [facility] Last Admin: 09/10/16 09:52 Dose: 12.5 mg Magnesium Sulfate 2 gm/ Premix 50 mls @ 25 mls/hr IV .PER PROTOCOL PRN; Protocol PRN Reason: Per Protocol Magnesium Sulfate 4 gm/ Premix 100 mls @ 25 mls/hr IV .PER PROTOCOL PRN; Protocol PRN Reason: Per Protocol Last Admin: 09/09/16 05:16 Dose: 25 mls/hr Magnesium Sulfate 2 gm/ Premix 50 mls @ 25 mls/hr IV ONCE PRN PRN Reason: Magnesium less than 1.8 Stop: 09/11/16 09:45 Potassium Chloride 10 meq/ (Premix) 100 mls @ 100 mls/hr IV Q1H PRN PRN Reason: Potassium less than 3.5 Stop: 09/11/16 09:45 Insulin Human Regular (Humulin R) 0 unit SUBCUT ACHS PEG PRN Reason: Protocol Last Admin: 09/10/16 10:02 Dose: Not Given Losartan Potassium (Cozaar) 100 mg PO DAILY [facility] Last Admin: 09/10/16 09:48 Dose: 100 mg Nabumetone (Relafen) 500 mg PO BID [facility] Last Admin: 09/10/16 09:50 Dose: 500 mg Nifedipine (Procardia Xl) 30 mg PO BEDTIME [facility] Last Admin: 09/09/16 21:46 Dose: 30 mg Nitroglycerin (Nitro Bid Oint) 0.5 inch TOP Q6HR [facility] Last Admin: 09/10/16 07:03 Dose: 0.5 inch Potassium Chloride (K Dur) 20 meq PO ONCE PRN PRN Reason: Potassium level 3.5 to 3.9 Potassium Chloride (K Dur) 20 meq PO DAILY [facility] Last Admin: 09/10/16 09:49 Dose: 20 meq Pravastatin Sodium (Pravachol) 40 mg PO DAILY [facility] Last Admin: 09/10/16 09:52 Dose: 40 mg Fluticasone/Salmeterol (Advair 250-50) 1 puff INH BID [facility] Last Admin: 09/10/16 09:54 Dose: 1 puff Spironolactone (Aldactone) 25 mg PO BID [facility] Last Admin: 09/10/16 10:07 Dose: 25 mg Trazodone HCl (Desyrel) 50 mg PO BEDTIME [facility] Last Admin: 09/09/16 21:47 Dose: 50 mg Zaleplon (Sonata) 5 mg PO BEDTIME PRN PRN Reason: Sleep Last Admin: 09/09/16 22:17 Dose: 5 mg Exam (Progress Note) - Constitutional Vitals: Period Temp Pulse Resp BP Sys/Castañeda Pulse Ox Last 24 Hr 96.7 F-98 F 61-78 16-20 153-207/69-103 92-99 Exam: General: Appears well developed, well nourished, morbidly obese, no apparent distress HEENT: Normocephalic, atraumatic Neck: Supple Neck, Midline Trachea, No Bruit, No JVD Cardiac: Regular rhythm, 2 out of 6 murmur, no gallop, no rub Lungs: Clear to auscultation, No Wheeze, Rales, Rhonchi Neuro: Cranial Nerve 2-12 Intact, Motor Function Grossly Intact Abdomen: Soft, Active Bowel Sounds, No Masses, No Pulsations/Bruits Skin: Normal color, no rash Extremities: No Clubbing, No Cyanosis, trace edema, Normal Upper Extr. Pulses Musculoskeletal: No acute abnormality noted Psychiatric: The patient does not appear to be anxious or depressed Result/EKG - Labs CBC & BMP: 09/10/16 04:09 09/10/16 04:09 Lab Results: I have reviewed the past 24 hour labs Labs: Laboratory Results - last 24 hr 09/09/16 09/09/16 09/09/16 11:41 17:38 21:22 WBC RBC Hgb Hct MCV MCH MCHC RDW Plt Count MPV Neut % (Auto) Lymph % (Auto) Perkins % (Auto) Eos % (Auto) Baso % (Auto) Neut # (Auto) Lymph # (Auto) Perkins # (Auto) Eos # (Auto) Baso # (Auto) Immature Gran % Nucleated RBC % Immature Gran # Nucleated RBCs # Sodium Potassium Chloride Carbon Dioxide Anion Gap BUN Creatinine GFR Calculation BUN/Creatinine Ratio Glucose POC Glucose 152 H 152 H 154 H Calculated Osmolality Calcium Magnesium 09/10/16 09/10/16 09/10/16 04:09 04:09 04:09 WBC 8.3 RBC 3.03 L Hgb 9.1 L Hct 27.0 L MCV 89.1 MCH 30 MCHC 33.7 RDW 13.4 Plt Count 410 H MPV 10.4 Neut % (Auto) 62.6 Lymph % (Auto) 23.0 Perkins % (Auto) 10.1 Eos % (Auto) 3.0 Baso % (Auto) 0.5 Neut # (Auto) 5.2 Lymph # (Auto) 1.9 Perkins # (Auto) 0.8 Eos # (Auto) 0.3 Baso # (Auto) 0.0 Immature Gran % 0.8 Nucleated RBC % 0.0 Immature Gran # 0.07 Nucleated RBCs # 0.00 Sodium 140 Potassium 3.7 Chloride 105 Carbon Dioxide 25 Anion Gap 13.7 BUN 25 H Creatinine 0.90 GFR Calculation 98 BUN/Creatinine Ratio 27.00 H Glucose 145 H POC Glucose Calculated Osmolality 285.4 Calcium 8.4 L Magnesium 1.7 L 09/10/16 07:47 WBC RBC Hgb Hct MCV MCH MCHC RDW Plt Count MPV Neut % (Auto) Lymph % (Auto) Perkins % (Auto) Eos % (Auto) Baso % (Auto) Neut # (Auto) Lymph # (Auto) Perkins # (Auto) Eos # (Auto) Baso # (Auto) Immature Gran % Nucleated RBC % Immature Gran # Nucleated RBCs # Sodium Potassium Chloride Carbon Dioxide Anion Gap BUN Creatinine GFR Calculation BUN/Creatinine Ratio Glucose POC Glucose 144 H Calculated Osmolality Calcium Magnesium - EKG EKG results: interpreted by me
--- NOTE | 2016-09-10 11:50 | Discharge Summary ---
<Kelsey Morse - Last Filed: 09/10/16 13:57> Hospital Course - Hospital Course Hospital Course: Ms. Raman is a 76-year-old -[place] female patient with a history of GERD, uncontrolled hypertension, OH, coronary artery disease, stroke, and type II diabetes that presented to the ED on 09/08 via EMS as a transfer from [facility] for evaluation of chest pain, shortness of breath, and lower extremity edema. Patient reported chest pain described as a burning sensation that began on the left side of her chest and radiated down her left arm. Patient also reported shortness of breath in association with the pain. After failed nebulizer treatments at home, patient reports to the [facility] for evaluation. She was found to have elevated blood pressure and was subsequently transferred to our hospital. Patient was noted to have a mild increase to her troponins and a BNP of 907. Patient was admitted to the hospitalist service for further treatment. Pt. was diuresed with IV Lasix. Cardiology was consulted to assist in the care of the patient. Patient was scheduled for heart catheterization on 09/09. LV ejection fraction was noted at approximately 50%. There was also an absence of significant focal obstructive disease. Medical management was recommended for the patient. Her chest pain resolved and according to notes, did not reoccur. Pt. labs and vital signs are stable today. Pt. is to be discharged home. She is to follow up with her PCP and cardiology as instructed. Specialty Discharge - Follow Up or Referrals Follow up with: Celia Horn DO [Physician] - 09/22/16 10:10 am (09/22/16 @10:10 for lab work, 10: 30 for appointment) Discharge Plan - Discharge Data Disposition: Disch To Home/Self Care - Discharge Medications New Carvedilol [Coreg] 25 mg PO BID #60 tablet Ascorbic Acid Tab [Vitamin C Tab] 1,000 mg PO BID tablet NIFEdipine XL TAB [Procardia Xl] 30 mg PO BEDTIME #30 tablet Potassium Chloride Cap/Tab [K Dur] 20 meq PO DAILY #30 tablet Continue Metformin HCl 1,000 mg PO BID Ipratropium/Albuterol Inhaler [Combivent Respimat Inhaler] 1 puff INH BID Mometasone 50 Mcg Nasal [place] [Nasonex Nasal [place]] 2 sprays BOTH NARES DAILY Fluticasone/Salmeterol 250-50 [Advair 250-50] 1 puff INH BID Pravastatin Sodium 40 mg PO DAILY Mirtazapine [Remeron] 30 mg PO BEDTIME Montelukast Tab [Singulair Tab] 10 mg PO BEDTIME Magnesium 250 mg PO DAILY Acetaminophen Tab [Tylenol Tab] 325 mg PO Q4H PRN #0 tablet PRN Reason: fever, headache/body aches Ranitidine Tab [Zantac Tab] 150 mg PO DAILY Furosemide 80 mg PO BID traZODone [Desyrel] 50 mg PO BEDTIME hydrALAZINE TAB [Apresoline Tab] 25 mg PO BID Gemfibrozil [Lopid] 600 mg PO BIDAC Losartan/Hydrochlorothiazide [Losartan-Hctz 100-12.5 mg Tab] 1 each PO DAILY Cetirizine Tab [ZyrTEC Tab] 10 mg PO DAILY Promethazine Tab [Phenergan Tab] 25 mg PO Q4H Gabapentin Cap/Tab [Neurontin Cap/Tab] 300 mg PO BEDTIME cloNIDine TAB [Catapres Tab] 0.1 mg PO BEDTIME Turmeric Root Extract [Turmeric] 150 mg PO DAILY Clopidogrel [Plavix] 75 mg PO DAILY Aspirin 81 mg PO DAILY Omeprazole 20 mg PO DAILY Nabumetone [Relafen] 500 mg PO BID Meloxicam [Mobic] 7.5 mg PO BID #60 tablet Discontinued Metoprolol Tartrate 50 mg PO BID - Follow Up or Referral Follow Up: Celia Horn DO [Physician] - 09/22/16 10:10 am (09/22/16 @10:10 for lab work, 10: 30 for appointment) - Forms/Instructions Instructions: Heart Failure (DC), Left Heart Catheterization (DC), Chronic Hypertension (DC) Exam - Constitutional Vitals: Period Temp Pulse Resp BP Sys/Castañeda Pulse Ox Last 24 Hr 96.7 F-97.2 F 61-78 16-20 153-198/69-103 92-99 Discharge Results Procedures and tests throughout hospitalization: Pending Orders 09/11/16 04:00 Basic Metabolic Panel IN AM Magnesium Routine Labs on day of discharge: Labs from last 24 hours 09/10/16 09/10/16 09/10/16 12:16 07:47 04:09 WBC RBC Hgb Hct MCV MCH MCHC RDW Plt Count MPV Neut % (Auto) Lymph % (Auto) Caroline % (Auto) Eos % (Auto) Baso % (Auto) Neut # (Auto) Lymph # (Auto) Caroline # (Auto) Eos # (Auto) Baso # (Auto) Immature Gran % Nucleated RBC % Immature Gran # Nucleated RBCs # Sodium Potassium Chloride Carbon Dioxide Anion Gap BUN Creatinine GFR Calculation BUN/Creatinine Ratio Glucose POC Glucose 152 H 144 H Calculated Osmolality Calcium Magnesium 1.7 L 09/10/16 09/10/16 09/09/16 04:09 04:09 21:22 WBC 8.3 RBC 3.03 L Hgb 9.1 L Hct 27.0 L MCV 89.1 MCH 30 MCHC 33.7 RDW 13.4 Plt Count 410 H MPV 10.4 Neut % (Auto) 62.6 Lymph % (Auto) 23.0 Caroline % (Auto) 10.1 Eos % (Auto) 3.0 Baso % (Auto) 0.5 Neut # (Auto) 5.2 Lymph # (Auto) 1.9 Caroline # (Auto) 0.8 Eos # (Auto) 0.3 Baso # (Auto) 0.0 Immature Gran % 0.8 Nucleated RBC % 0.0 Immature Gran # 0.07 Nucleated RBCs # 0.00 Sodium 140 Potassium 3.7 Chloride 105 Carbon Dioxide 25 Anion Gap 13.7 BUN 25 H Creatinine 0.90 GFR Calculation 98 BUN/Creatinine Ratio 27.00 H Glucose 145 H POC Glucose 154 H Calculated Osmolality 285.4 Calcium 8.4 L Magnesium 09/09/16 17:38 WBC RBC Hgb Hct MCV MCH MCHC RDW Plt Count MPV Neut % (Auto) Lymph % (Auto) Caroline % (Auto) Eos % (Auto) Baso % (Auto) Neut # (Auto) Lymph # (Auto) Caroline # (Auto) Eos # (Auto) Baso # (Auto) Immature Gran % Nucleated RBC % Immature Gran # Nucleated RBCs # Sodium Potassium Chloride Carbon Dioxide Anion Gap BUN Creatinine GFR Calculation BUN/Creatinine Ratio Glucose POC Glucose 152 H Calculated Osmolality Calcium Magnesium DS: Provider Date of admission: 09/09/16 00:27 Primary care physician: . No PCP Attending physician on admission: Kt Wong MD Consults: 09/09/16 00:30 Consult to Physician [CONS] Routine Comment: Consulting Provider: Cardiology - [facility] Consult to Specialist Group: Cardiology Person Notified: Mark Date Notified: 09/09/16 Time Notified: 19:40 09/09/16 03:43 Consult to Dietitian [CONS] Routine Reason for Dietitian: Dietary Consult 09/09/16 04:06 Consult to Pastoral Services [CONS] Routine Comment: Pastoral Screen: Request Scale Tank Operator Visit 09/10/16 12:34 Consult to Case Mgmt/Social Srvs [CONS] Routine Reason for Case Mgmt/Social Srvs: Equipment Consult Comment: hospital bed Discharging clinician: Kelsey Morse NP <Sue King - Last Filed: 09/10/16 14:26> Hospital Course - Time spent with patient Time with patient DS: Greater than 30 minutes (Total discharge time for this patient, including [id number] time, clinical documentation, medication reconciliation, and discharge planning was 40 minutes.) Diagnosis - Discharge Diagnosis (1) CHF (congestive heart failure) Status: Acute (2) Diabetes type 2, controlled Status: Chronic (3) Hypertension Status: Chronic (4) Morbid obesity Status: Chronic Discharge Plan - Discharge Data Condition at Discharge: Stable Discharge Diet: advance to your usual diet Activity: resume usual activities as tolerated Hygiene: no restrictions Contact your physician if you experience:: fever over 101, Difficulty voiding, Shortness of breath DS: Provider Expected date of discharge: 09/10/16
[2016-09-10 12:25] VITALS: BP 197/88
== END 2016-09-10 16:15 | disposition home or self-care (01) | DRG 287 ==
LOC: N.ED 20:47 → N.EDINP 09-09 00:27 → SUATTDRO 09-09 00:27 → N.TELEN 09-09 00:53
PROVIDERS: ADMIT Internal Medicine; ATTEND Family Medicine
PROC: CLCCHCL (ICD-10-PCS; 2016-09-09 13:45)

== ENCOUNTER 2017-01-25 09:05 | Inpatient (IN) ==
[2017-01-25] MEDS ORDERED: DEXTROSE 50% 25 GM/50 ML VIAL IV PRN (11:03)
[2017-01-25] MEDS ORDERED: GLUCAGON 1 MG VIAL IM PRN (11:03)
[2017-01-25] MEDS: INSULIN LISPRO 100 UNIT/ML SUBCUT SCH ×3 (11:38→21:00)
[2017-01-25 11:57] LABS: Basophils % 0.1 % (0.0-0.8); Eosinophils # 0.2 10*3/uL (0.0-0.87); Eosinophils % 0.7 % (0.00-10.9); Hematocrit 20.4 VOL% (35.7-47.0); Immature Granulocytes Absolute 0.54 #; Lymphocytes # 0.8 10*3/uL (1.4-4.0); Lymphocytes % 3.1 % (21.3-54.2); Mean Corpuscular HGB Conc 34.3 GM/DL (32-36); Mean Corpuscular Hemoglobin 31 PG (27-34); Mean Corpuscular Volume 89.1 FL (87-102); Mean Platelet Volume 9.5 FL (9.6-12.0); Monocytes # 2.3 10*3/uL (0.11-0.8); Monocytes % 8.3 % (1.7-12.7); Neutrophils # 23.2 10*3/uL (1.4-7.4); Neutrophils % 85.8 % (38.7-73.9); Platelet Count 361 T/CUMM (130-400); Red Blood Count 2.29 MC/CUMM (3.8-5.5); Red Cell Distribution Width 14.6 % (9.3-17.3); White Blood Count 27.1 T/CUMM (4-12)
[2017-01-25 12:21] LABS: Band Neutrophils 3 % (0-10); Eosinophils 1 % (0-10); Hypochromasia Slight; Lymphocytes 2 % (20-55); Microcytosis 1+; Ovalocytes Slight; Segmented Neutrophils 89 % (50-85); Total Cells Counted 100
[2017-01-25] MEDS ORDERED: SODIUM CHLORIDE 0.9% 1,000 ML IV PRN (12:27)
[2017-01-25] MEDS ORDERED: LEVOFLOXACIN INJ 750 MG in PREMIX 1 EACH IV SCH (12:30)
[2017-01-25 12:33] LABS: Albumin 2.1 G/DL (3.4-5.0); Bilirubin,Total 1.4 MG/DL (0.2-1.0); Calcium 8.5 MG/DL (8.5-10.1); Osmolality,Calculated 294.1 MOS/KG (273-304); Potassium 5.5 MMOL/L (3.5-5.1); Total Protein 5.1 G/DL (6.4-8.3)
[2017-01-25] MEDS ORDERED: SODIUM POLYSTYRENE SULFATE 15 GM/60 ML BOTTLE PO ONE (12:47)
[2017-01-25] MEDS: LEVOFLOXACIN INJ 250 MG in PREMIX 1 EACH IV SCH (14:52)
[2017-01-25] MEDS: GEMFIBROZIL 600 MG TABLET PO SCH (17:30)
[2017-01-25 18:53] LABS: % Iron Saturation 9.2 % (18-50); Ferritin 268.9 ng/ml (8-252)
[2017-01-25 18:54] LABS: Troponin I Only 0.039 NG/ML (0.00-0.045)
[2017-01-25] MEDS: traZODone 50 MG TABLET PO SCH (21:57)
[2017-01-25] MEDS: MONTELUKAST 10 MG TABLET PO SCH (21:57)
[2017-01-25] MEDS: GABAPENTIN 300 MG CAPSULE PO SCH (21:58)
[2017-01-25] MEDS: CARVEDILOL 25 MG TABLET PO SCH (21:58)
[2017-01-25] MEDS: traMADol 50 MG TABLET PO SCH (21:58)
[2017-01-26 05:35] LABS: Basophils % 0.1 % (0.0-0.8); Eosinophils # 0.2 10*3/uL (0.0-0.87); Eosinophils % 0.7 % (0.00-10.9); Immature Granulocytes % 3.6 %; Immature Granulocytes Absolute 0.99 #; Lymphocytes # 0.7 10*3/uL (1.4-4.0); Lymphocytes % 2.7 % (21.3-54.2); Mean Corpuscular HGB Conc 35.2 GM/DL (32-36); Mean Corpuscular Hemoglobin 31 PG (27-34); Mean Corpuscular Volume 87.1 FL (87-102); Mean Platelet Volume 9.5 FL (9.6-12.0); Monocytes # 2.6 10*3/uL (0.11-0.8); Monocytes % 9.7 % (1.7-12.7); Neutrophils # 22.7 10*3/uL (1.4-7.4); Neutrophils % 83.2 % (38.7-73.9); Platelet Count 354 T/CUMM (130-400); Red Cell Distribution Width 14.5 % (9.3-17.3); White Blood Count 27.2 T/CUMM (4-12)
[2017-01-26 05:40] LABS: INR 1.3; PT Patient Result 13.5 SECS
[2017-01-26 05:47] LABS: Hemoglobin 8.8 GM/DL (12.0-16.0); Red Blood Count 2.87 MC/CUMM (3.8-5.5)
[2017-01-26 06:01] LABS: Calcium 8.4 MG/DL (8.5-10.1); Magnesium 1.9 MG/DL (1.8-2.4); Osmolality,Calculated 299.8 MOS/KG (273-304); Potassium 5.2 MMOL/L (3.5-5.1)
[2017-01-26 06:15] LABS: Band Neutrophils 1 % (0-10); Lymphocytes 2 % (20-55); Platelet Estimate Adequate; Segmented Neutrophils 88 % (50-85); Total Cells Counted 100
[2017-01-26 06:16] LABS: Burr Cells Slight; Hypochromasia 1+; Ovalocytes Slight
[2017-01-26 06:18] LABS: Giant Platelets Few; Microcytosis Slight
[2017-01-26] MEDS: INSULIN LISPRO 100 UNIT/ML SUBCUT SCH ×4 (09:31→22:10)
[2017-01-26] MEDS: GEMFIBROZIL 600 MG TABLET PO SCH ×2 (09:50→17:11)
[2017-01-26] MEDS: CETIRIZINE 10 MG TABLET PO SCH (09:50)
[2017-01-26] MEDS: OMEGA 3 ACID ETHYL ESTERS 1 GM CAPSULE PO SCH (09:50)
[2017-01-26] MEDS: PANTOPRAZOLE 40 MG TABLET PO SCH (09:51)
[2017-01-26] MEDS: traMADol 50 MG TABLET PO SCH ×2 (09:51→22:09)
[2017-01-26] MEDS: CARVEDILOL 25 MG TABLET PO SCH ×2 (09:51→17:11)
[2017-01-26] MEDS: PRAVASTATIN 40 MG TABLET PO SCH (09:51)
[2017-01-26] MEDS: IPRATROPIUM 500 MCG/2.5 ML NEB RESP TX SCH (11:31)
[2017-01-26] MEDS: FLUTICASONE 50 MCG NASAL SPRAY 16 GM BOTTLE BOTH NARES SCH (12:50)
[2017-01-26] MEDS: MENTHOL/ZINC OXIDE OINT 71 GM JAR TOP SCH ×2 (12:50→22:10)
[2017-01-26] MEDS: LEVOFLOXACIN INJ 250 MG in PREMIX 1 EACH IV SCH (12:50)
[2017-01-26] MEDS ORDERED: SODIUM POLYSTYRENE SULFATE 15 GM/60 ML BOTTLE PO ONE (15:30)
[2017-01-26 16:33] LABS: Amorphous Crystals,Urine Occasional /HPF (Few); Apearance,Urine CLOUDY (Clear); Bacteria,Urine Occasional /HPF (Few); Bilirubin,Urine Negative (Negative); Blood, Urine Small mg/dL (Negative); Glucose,Urine (UA) Negative (Negative); Ketones,Urine Negative (Negative); Nitrite,Urine Negative (Negative); Protein,Urine Negative; RBC,Urine 7 /HPF (0-4); Squamous Epithelial Cell,Urine Occasional /HPF (0-10); Urine Color Yellow (Yellow); Urine Urobilinogen < 2.0 EU/DL (0.2-1.0); WBC,Urine 4 /HPF (0-6)
[2017-01-26] MEDS: amLODIPine 5 MG TABLET PO SCH (17:11)
[2017-01-26] MEDS: SODIUM CHLORIDE 0.45% 1,000 ML IV SCH (17:31)
[2017-01-26] MEDS: IRON (CARBONYL) 45 MG TABLET PO SCH (22:09)
[2017-01-26] MEDS: GABAPENTIN 300 MG CAPSULE PO SCH (22:09)
[2017-01-26] MEDS: MONTELUKAST 10 MG TABLET PO SCH (22:09)
[2017-01-26] MEDS: traZODone 50 MG TABLET PO SCH (22:09)
[2017-01-27 06:25] LABS: Basophils # 0.1 10*3/uL (0.0-0.2); Basophils % 0.2 % (0.0-0.8); Eosinophils # 0.3 10*3/uL (0.0-0.87); Eosinophils % 1.1 % (0.00-10.9); Hematocrit 24.2 VOL% (35.7-47.0); Hemoglobin 8.5 GM/DL (12.0-16.0); Immature Granulocytes % 1.9 %; Immature Granulocytes Absolute 0.46 #; Lymphocytes # 1.1 10*3/uL (1.4-4.0); Lymphocytes % 4.4 % (21.3-54.2); Mean Corpuscular HGB Conc 35.1 GM/DL (32-36); Mean Corpuscular Hemoglobin 31 PG (27-34); Mean Corpuscular Volume 87.7 FL (87-102); Mean Platelet Volume 9.5 FL (9.6-12.0); Monocytes # 2.8 10*3/uL (0.11-0.8); Monocytes % 11.3 % (1.7-12.7); Neutrophils # 20.1 10*3/uL (1.4-7.4); Neutrophils % 81.1 % (38.7-73.9); Platelet Count 373 T/CUMM (130-400); Red Blood Count 2.76 MC/CUMM (3.8-5.5); Red Cell Distribution Width 14.6 % (9.3-17.3); White Blood Count 24.7 T/CUMM (4-12)
[2017-01-27 06:47] LABS: Band Neutrophils 20 % (0-10); Lymphocytes 2 % (20-55); Segmented Neutrophils 72 % (50-85); Total Cells Counted 100
[2017-01-27 06:48] LABS: Anisocytosis 1+; Poikilocytosis 1+
[2017-01-27 07:02] LABS: Calcium 8.2 MG/DL (8.5-10.1); Osmolality,Calculated 304.4 MOS/KG (273-304); Potassium 4.6 MMOL/L (3.5-5.1)
[2017-01-27] MEDS: IPRATROPIUM 500 MCG/2.5 ML NEB RESP TX SCH (07:09)
[2017-01-27] MEDS ORDERED: LIDOCAINE 100 MG/5 ML SYRINGE ONE (09:00)
[2017-01-27] MEDS ORDERED: PROPOFOL 200 MG/20 ML VIAL IV ONE (09:00)
[2017-01-27] MEDS: INSULIN LISPRO 100 UNIT/ML SUBCUT SCH ×4 (09:20→21:44)
[2017-01-27] MEDS: CARVEDILOL 25 MG TABLET PO SCH ×2 (09:21→17:03)
[2017-01-27] MEDS: IRON (CARBONYL) 45 MG TABLET PO SCH ×2 (09:21→21:43)
[2017-01-27] MEDS: FLUTICASONE 50 MCG NASAL SPRAY 16 GM BOTTLE BOTH NARES SCH (09:21)
[2017-01-27] MEDS: GEMFIBROZIL 600 MG TABLET PO SCH ×2 (09:21→17:03)
[2017-01-27] MEDS: MENTHOL/ZINC OXIDE OINT 71 GM JAR TOP SCH ×2 (09:21→21:44)
[2017-01-27] MEDS: PRAVASTATIN 40 MG TABLET PO SCH (09:22)
[2017-01-27] MEDS: OMEGA 3 ACID ETHYL ESTERS 1 GM CAPSULE PO SCH (09:22)
[2017-01-27] MEDS: traMADol 50 MG TABLET PO SCH ×2 (09:22→21:43)
[2017-01-27] MEDS: CETIRIZINE 10 MG TABLET PO SCH (09:22)
[2017-01-27] MEDS: amLODIPine 5 MG TABLET PO SCH (09:22)
[2017-01-27] MEDS: PANTOPRAZOLE 40 MG TABLET PO SCH (09:22)
[2017-01-27] MEDS ORDERED: GLUCAGON 1 MG VIAL IM PRN (12:53)
[2017-01-27] MEDS ORDERED: DEXTROSE 50% 25 GM/50 ML VIAL IV PRN (12:53)
[2017-01-27] MEDS: LEVOFLOXACIN INJ 250 MG in PREMIX 1 EACH IV SCH (13:19)
[2017-01-27] MEDS: PIPERACILLIN/TAZOBACTAM 3,375 MG in SODIUM CHLORIDE 0.9% 100 ML IV SCH (17:54)
[2017-01-27] MEDS: SODIUM CHLORIDE 0.45% 1,000 ML IV SCH ×2 (21:39→21:41)
[2017-01-27] MEDS: traZODone 50 MG TABLET PO SCH (21:43)
[2017-01-27] MEDS: GABAPENTIN 300 MG CAPSULE PO SCH (21:43)
[2017-01-27] MEDS: MONTELUKAST 10 MG TABLET PO SCH (21:43)
[2017-01-28] MEDS: PIPERACILLIN/TAZOBACTAM 3,375 MG in SODIUM CHLORIDE 0.9% 100 ML IV SCH ×3 (00:32→17:08)
[2017-01-28 07:01] LABS: Basophils # 0.1 10*3/uL (0.0-0.2); Basophils % 0.3 % (0.0-0.8); Eosinophils # 0.2 10*3/uL (0.0-0.87); Eosinophils % 1.1 % (0.00-10.9); Hematocrit 25.7 VOL% (35.7-47.0); Hemoglobin 8.8 GM/DL (12.0-16.0); Immature Granulocytes % 2.9 %; Immature Granulocytes Absolute 0.63 #; Lymphocytes # 1.2 10*3/uL (1.4-4.0); Lymphocytes % 5.3 % (21.3-54.2); Mean Corpuscular HGB Conc 34.2 GM/DL (32-36); Mean Corpuscular Hemoglobin 30 PG (27-34); Mean Corpuscular Volume 87.7 FL (87-102); Mean Platelet Volume 9.4 FL (9.6-12.0); Monocytes # 2.4 10*3/uL (0.11-0.8); Neutrophils # 17.5 10*3/uL (1.4-7.4); Neutrophils % 79.4 % (38.7-73.9); Platelet Count 369 T/CUMM (130-400); Red Blood Count 2.93 MC/CUMM (3.8-5.5); Red Cell Distribution Width 14.7 % (9.3-17.3)
[2017-01-28] MEDS: IPRATROPIUM 500 MCG/2.5 ML NEB RESP TX SCH (07:08)
[2017-01-28 07:13] LABS: INR 1.5; Partial Thromboplastin Time 33.2 SECS (0-40)
[2017-01-28 07:28] LABS: Band Neutrophils 3 % (0-10); Burr Cells Slight; Hypochromasia 1+; Lymphocytes 5 % (20-55); Microcytosis 1+; Segmented Neutrophils 81 % (50-85); Total Cells Counted 100
[2017-01-28 07:29] LABS: Ovalocytes Slight; Platelet Estimate Normal; Tear Drop Cells Slight
[2017-01-28 07:39] LABS: Albumin 1.4 G/DL (3.4-5.0); Bilirubin,Total 5.1 MG/DL (0.2-1.0); Calcium 8.2 MG/DL (8.5-10.1); Potassium 4.5 MMOL/L (3.5-5.1); Total Protein 4.6 G/DL (6.4-8.3)
[2017-01-28 07:42] LABS: Bilirubin,Direct 4.24 MG/DL (0.0-0.20)
[2017-01-28] MEDS: INSULIN LISPRO 100 UNIT/ML SUBCUT SCH ×4 (08:27→21:20)
[2017-01-28] MEDS: SODIUM CHLORIDE 0.45% 1,000 ML IV SCH (09:55)
[2017-01-28] MEDS: MENTHOL/ZINC OXIDE OINT 71 GM JAR TOP SCH ×2 (10:14→21:22)
[2017-01-28] MEDS: GEMFIBROZIL 600 MG TABLET PO SCH ×2 (12:48→17:07)
[2017-01-28] MEDS: CARVEDILOL 25 MG TABLET PO SCH ×2 (12:48→17:08)
[2017-01-28] MEDS: FLUTICASONE 50 MCG NASAL SPRAY 16 GM BOTTLE BOTH NARES SCH (12:48)
[2017-01-28] MEDS: IRON (CARBONYL) 45 MG TABLET PO SCH ×2 (12:48→21:20)
[2017-01-28] MEDS: CETIRIZINE 10 MG TABLET PO SCH (13:00)
[2017-01-28] MEDS: OMEGA 3 ACID ETHYL ESTERS 1 GM CAPSULE PO SCH (13:00)
[2017-01-28] MEDS: PANTOPRAZOLE 40 MG TABLET PO SCH (13:00)
[2017-01-28] MEDS: PRAVASTATIN 40 MG TABLET PO SCH (13:00)
[2017-01-28] MEDS: traMADol 50 MG TABLET PO SCH ×2 (13:00→21:26)
[2017-01-28] MEDS: amLODIPine 5 MG TABLET PO SCH (13:00)
[2017-01-28] MEDS: SODIUM BICARB INJ 100 MEQ in SODIUM CHLORIDE 0.45% 1,000 ML IV SCH (17:07)
[2017-01-28] MEDS: traZODone 50 MG TABLET PO SCH (21:20)
[2017-01-28] MEDS: GABAPENTIN 300 MG CAPSULE PO SCH (21:22)
[2017-01-28] MEDS: MONTELUKAST 10 MG TABLET PO SCH (21:22)
[2017-01-29] MEDS: PIPERACILLIN/TAZOBACTAM 3,375 MG in SODIUM CHLORIDE 0.9% 100 ML IV SCH ×3 (01:46→16:17)
[2017-01-29 03:46] LABS: Basophils # 0.1 10*3/uL (0.0-0.2); Basophils % 0.3 % (0.0-0.8); Eosinophils # 0.3 10*3/uL (0.0-0.87); Eosinophils % 1.7 % (0.00-10.9); Hematocrit 24.2 VOL% (35.7-47.0); Hemoglobin 8.3 GM/DL (12.0-16.0); Immature Granulocytes % 3.7 %; Immature Granulocytes Absolute 0.75 #; Lymphocytes # 1.2 10*3/uL (1.4-4.0); Lymphocytes % 5.8 % (21.3-54.2); Mean Corpuscular HGB Conc 34.3 GM/DL (32-36); Mean Corpuscular Hemoglobin 30 PG (27-34); Mean Corpuscular Volume 87.1 FL (87-102); Mean Platelet Volume 9.9 FL (9.6-12.0); Monocytes # 1.9 10*3/uL (0.11-0.8); Monocytes % 9.3 % (1.7-12.7); NRBC # 0.02 10*3/uL; Neutrophils % 79.2 % (38.7-73.9); Platelet Count 360 T/CUMM (130-400); Red Blood Count 2.78 MC/CUMM (3.8-5.5); Red Cell Distribution Width 14.6 % (9.3-17.3); White Blood Count 20.2 T/CUMM (4-12)
[2017-01-29 04:34] LABS: Albumin 1.5 G/DL (3.4-5.0); Bilirubin,Total 5.4 MG/DL (0.2-1.0); Calcium 8.2 MG/DL (8.5-10.1); Osmolality,Calculated 306.3 MOS/KG (273-304); Potassium 4.5 MMOL/L (3.5-5.1); Total Protein 4.4 G/DL (6.4-8.3)
[2017-01-29 04:59] LABS: Band Neutrophils 7 % (0-10); Lymphocytes 8 % (20-55); Metamyelocytes 1 %; Platelet Estimate Normal; Segmented Neutrophils 79 % (50-85); Total Cells Counted 100
[2017-01-29 06:16] LABS: Albumin 1.5 G/DL (3.4-5.0); Bilirubin,Direct 4.2 MG/DL (0.0-0.20); Bilirubin,Indirect 1.8 MG/DL (0.0-1.0); Total Protein 4.4 G/DL (6.4-8.3)
[2017-01-29] MEDS: IPRATROPIUM 500 MCG/2.5 ML NEB RESP TX SCH (06:56)
[2017-01-29] MEDS: INSULIN LISPRO 100 UNIT/ML SUBCUT SCH ×4 (08:43→21:23)
[2017-01-29] MEDS: CETIRIZINE 10 MG TABLET PO SCH (10:24)
[2017-01-29] MEDS: GEMFIBROZIL 600 MG TABLET PO SCH ×2 (10:24→16:17)
[2017-01-29] MEDS: PRAVASTATIN 40 MG TABLET PO SCH (10:24)
[2017-01-29] MEDS: CARVEDILOL 25 MG TABLET PO SCH ×2 (10:24→16:16)
[2017-01-29] MEDS: OMEGA 3 ACID ETHYL ESTERS 1 GM CAPSULE PO SCH (10:24)
[2017-01-29] MEDS: FLUTICASONE 50 MCG NASAL SPRAY 16 GM BOTTLE BOTH NARES SCH (10:24)
[2017-01-29] MEDS: IRON (CARBONYL) 45 MG TABLET PO SCH ×2 (10:24→21:21)
[2017-01-29] MEDS: MENTHOL/ZINC OXIDE OINT 71 GM JAR TOP SCH ×2 (10:24→21:22)
[2017-01-29] MEDS: traMADol 50 MG TABLET PO SCH ×3 (10:24→21:23)
[2017-01-29] MEDS: PANTOPRAZOLE 40 MG TABLET PO SCH (10:24)
[2017-01-29] MEDS: amLODIPine 5 MG TABLET PO SCH (10:24)
[2017-01-29] MEDS: MONTELUKAST 10 MG TABLET PO SCH (21:21)
[2017-01-29] MEDS: SODIUM BICARB INJ 100 MEQ in SODIUM CHLORIDE 0.45% 1,000 ML IV SCH (21:22)
[2017-01-29] MEDS: traZODone 50 MG TABLET PO SCH (21:22)
[2017-01-29] MEDS: GABAPENTIN 300 MG CAPSULE PO SCH (21:23)
[2017-01-30] MEDS: PIPERACILLIN/TAZOBACTAM 3,375 MG in SODIUM CHLORIDE 0.9% 100 ML IV SCH ×3 (01:19→17:11)
[2017-01-30 02:46] LABS: INR 1.4; PT Patient Result 14.1 SECS; Partial Thromboplastin Time 30.4 SECS (0-40)
[2017-01-30 02:52] LABS: Basophils # 0.1 10*3/uL (0.0-0.2); Basophils % 0.3 % (0.0-0.8); Eosinophils # 0.3 10*3/uL (0.0-0.87); Eosinophils % 1.6 % (0.00-10.9); Hematocrit 24.6 VOL% (35.7-47.0); Hemoglobin 8.6 GM/DL (12.0-16.0); Immature Granulocytes % 4.6 %; Immature Granulocytes Absolute 0.93 #; Lymphocytes # 1.2 10*3/uL (1.4-4.0); Lymphocytes % 5.8 % (21.3-54.2); Mean Corpuscular Hemoglobin 30 PG (27-34); Mean Corpuscular Volume 84.8 FL (87-102); Mean Platelet Volume 9.9 FL (9.6-12.0); Monocytes # 1.6 10*3/uL (0.11-0.8); NRBC # 0.02 10*3/uL; Neutrophils % 79.7 % (38.7-73.9); Platelet Count 370 T/CUMM (130-400); Red Cell Distribution Width 14.3 % (9.3-17.3); White Blood Count 20.1 T/CUMM (4-12)
[2017-01-30 03:11] LABS: Albumin 1.5 G/DL (3.4-5.0); Bilirubin,Direct 5.04 MG/DL (0.0-0.20); Bilirubin,Indirect 1.3 MG/DL (0.0-1.0); Bilirubin,Total 6.3 MG/DL (0.2-1.0); Magnesium 1.9 MG/DL (1.8-2.4); Total Protein 4.7 G/DL (6.4-8.3)
[2017-01-30 03:17] LABS: Albumin 1.5 G/DL (3.4-5.0); Bilirubin,Total 5.9 MG/DL (0.2-1.0); Calcium 8.5 MG/DL (8.5-10.1); Osmolality,Calculated 309.3 MOS/KG (273-304); Total Protein 4.5 G/DL (6.4-8.3)
[2017-01-30 04:34] LABS: Band Neutrophils 6 % (0-10); Eosinophils 1 % (0-10); Lymphocytes 5 % (20-55); Myelocytes 2 %; Segmented Neutrophils 82 % (50-85); Total Cells Counted 100
[2017-01-30 04:35] LABS: Platelet Estimate Normal
[2017-01-30] MEDS: IPRATROPIUM 500 MCG/2.5 ML NEB RESP TX SCH (07:19)
[2017-01-30] MEDS: INSULIN LISPRO 100 UNIT/ML SUBCUT SCH ×4 (08:14→20:49)
[2017-01-30] MEDS: OMEGA 3 ACID ETHYL ESTERS 1 GM CAPSULE PO SCH (09:12)
[2017-01-30] MEDS: MENTHOL/ZINC OXIDE OINT 71 GM JAR TOP SCH ×2 (09:12→20:50)
[2017-01-30] MEDS: PANTOPRAZOLE 40 MG TABLET PO SCH (09:12)
[2017-01-30] MEDS: IRON (CARBONYL) 45 MG TABLET PO SCH ×2 (09:12→20:49)
[2017-01-30] MEDS: amLODIPine 5 MG TABLET PO SCH (09:13)
[2017-01-30] MEDS: GEMFIBROZIL 600 MG TABLET PO SCH ×2 (09:13→17:11)
[2017-01-30] MEDS: traMADol 50 MG TABLET PO SCH ×2 (09:13→20:50)
[2017-01-30] MEDS: PRAVASTATIN 40 MG TABLET PO SCH (09:13)
[2017-01-30] MEDS: CARVEDILOL 25 MG TABLET PO SCH ×2 (09:13→17:11)
[2017-01-30] MEDS: FLUTICASONE 50 MCG NASAL SPRAY 16 GM BOTTLE BOTH NARES SCH (09:14)
[2017-01-30] MEDS: CETIRIZINE 10 MG TABLET PO SCH (09:52)
[2017-01-30] MEDS: SODIUM BICARB INJ 100 MEQ in SODIUM CHLORIDE 0.45% 1,000 ML IV SCH (14:26)
[2017-01-30] MEDS: FLUCONAZOLE 100 MG TABLET PO SCH (20:49)
[2017-01-30] MEDS: MONTELUKAST 10 MG TABLET PO SCH (20:49)
[2017-01-30] MEDS: traZODone 50 MG TABLET PO SCH (20:50)
[2017-01-30] MEDS: GABAPENTIN 300 MG CAPSULE PO SCH (20:50)
[2017-01-31] MEDS: PIPERACILLIN/TAZOBACTAM 3,375 MG in SODIUM CHLORIDE 0.9% 100 ML IV SCH ×3 (01:47→17:23)
[2017-01-31 07:20] LABS: Albumin 1.4 G/DL (3.4-5.0); Bilirubin,Direct 5.02 MG/DL (0.0-0.20); Bilirubin,Indirect 1.1 MG/DL (0.0-1.0); Bilirubin,Total 6.1 MG/DL (0.2-1.0); Osmolality,Calculated 309.1 MOS/KG (273-304); Total Protein 4.6 G/DL (6.4-8.3)
[2017-01-31] MEDS: IPRATROPIUM 500 MCG/2.5 ML NEB RESP TX SCH (08:06)
[2017-01-31 08:31] LABS: Basophils # 0.1 10*3/uL (0.0-0.2); Basophils % 0.4 % (0.0-0.8); Eosinophils # 0.4 10*3/uL (0.0-0.87); Hematocrit 23.6 VOL% (35.7-47.0); Hemoglobin 8.3 GM/DL (12.0-16.0); Immature Granulocytes % 6.6 %; Immature Granulocytes Absolute 1.28 #; Lymphocytes # 1.7 10*3/uL (1.4-4.0); Lymphocytes % 8.9 % (21.3-54.2); Mean Corpuscular HGB Conc 35.2 GM/DL (32-36); Mean Corpuscular Hemoglobin 29 PG (27-34); Mean Corpuscular Volume 83.7 FL (87-102); Mean Platelet Volume 9.9 FL (9.6-12.0); Monocytes # 1.6 10*3/uL (0.11-0.8); NRBC # 0.04 10*3/uL; Neutrophils # 14.4 10*3/uL (1.4-7.4); Neutrophils % 74.1 % (38.7-73.9); Platelet Count 353 T/CUMM (130-400); Red Blood Count 2.82 MC/CUMM (3.8-5.5); Red Cell Distribution Width 14.1 % (9.3-17.3); White Blood Count 19.5 T/CUMM (4-12)
[2017-01-31] MEDS: INSULIN LISPRO 100 UNIT/ML SUBCUT SCH ×4 (08:33→22:47)
[2017-01-31 08:54] LABS: Band Neutrophils 2 % (0-10); Eosinophils 2 % (0-10); Hypochromasia 1+; Lymphocytes 10 % (20-55); Segmented Neutrophils 79 % (50-85); Total Cells Counted 100
[2017-01-31 08:55] LABS: Microcytosis Slight; Ovalocytes Slight
[2017-01-31] MEDS: OMEGA 3 ACID ETHYL ESTERS 1 GM CAPSULE PO SCH (10:02)
[2017-01-31] MEDS: GEMFIBROZIL 600 MG TABLET PO SCH ×2 (10:03→17:23)
[2017-01-31] MEDS: FLUCONAZOLE 100 MG TABLET PO SCH (10:03)
[2017-01-31] MEDS: IRON (CARBONYL) 45 MG TABLET PO SCH ×2 (10:03→22:51)
[2017-01-31] MEDS: CARVEDILOL 25 MG TABLET PO SCH ×2 (10:03→17:23)
[2017-01-31] MEDS: NYSTATIN CREAM 15 GM TUBE TOP SCH ×3 (10:04→22:47)
[2017-01-31] MEDS: MENTHOL/ZINC OXIDE OINT 71 GM JAR TOP SCH ×2 (10:04→22:50)
[2017-01-31] MEDS: FLUTICASONE 50 MCG NASAL SPRAY 16 GM BOTTLE BOTH NARES SCH (10:04)
[2017-01-31] MEDS: amLODIPine 5 MG TABLET PO SCH (10:04)
[2017-01-31] MEDS: PRAVASTATIN 40 MG TABLET PO SCH (10:05)
[2017-01-31] MEDS: traMADol 50 MG TABLET PO SCH ×2 (10:05→21:48)
[2017-01-31] MEDS: PANTOPRAZOLE 40 MG TABLET PO SCH (10:05)
[2017-01-31] MEDS: CETIRIZINE 10 MG TABLET PO SCH (10:06)
[2017-01-31] MEDS: SODIUM BICARB INJ 100 MEQ in SODIUM CHLORIDE 0.45% 1,000 ML IV SCH ×2 (10:06)
[2017-01-31] MEDS: ONDANSETRON 4 MG/2 ML VIAL IV PRN (17:28)
[2017-01-31] MEDS: traZODone 50 MG TABLET PO SCH (21:43)
[2017-01-31] MEDS: GABAPENTIN 300 MG CAPSULE PO SCH (21:43)
[2017-01-31] MEDS: MONTELUKAST 10 MG TABLET PO SCH (21:44)
[2017-02-01] MEDS: PIPERACILLIN/TAZOBACTAM 3,375 MG in SODIUM CHLORIDE 0.9% 100 ML IV SCH ×3 (02:01→16:52)
[2017-02-01 07:15] LABS: Basophils # 0.1 10*3/uL (0.0-0.2); Basophils % 0.5 % (0.0-0.8); Eosinophils # 0.5 10*3/uL (0.0-0.87); Eosinophils % 2.5 % (0.00-10.9); Hematocrit 23.4 VOL% (35.7-47.0); Hemoglobin 8.2 GM/DL (12.0-16.0); Immature Granulocytes % 5.6 %; Immature Granulocytes Absolute 1.11 #; Lymphocytes # 1.5 10*3/uL (1.4-4.0); Lymphocytes % 7.5 % (21.3-54.2); Mean Corpuscular Hemoglobin 29 PG (27-34); Mean Corpuscular Volume 82.7 FL (87-102); Mean Platelet Volume 10.1 FL (9.6-12.0); Monocytes # 1.4 10*3/uL (0.11-0.8); Monocytes % 7.2 % (1.7-12.7); NRBC # 0.03 10*3/uL; Neutrophils # 15.2 10*3/uL (1.4-7.4); Neutrophils % 76.7 % (38.7-73.9); Platelet Count 350 T/CUMM (130-400); Red Blood Count 2.83 MC/CUMM (3.8-5.5); Red Cell Distribution Width 14.4 % (9.3-17.3); White Blood Count 19.8 T/CUMM (4-12)
[2017-02-01 07:20] LABS: INR 1.3; PT Patient Result 13.2 SECS
[2017-02-01 07:38] LABS: Band Neutrophils 3 % (0-10); Eosinophils 2 % (0-10); Hypochromasia 1+; Lymphocytes 7 % (20-55); Microcytosis Slight; Segmented Neutrophils 81 % (50-85); Total Cells Counted 100
[2017-02-01 07:39] LABS: Burr Cells Slight; Platelet Estimate Normal; Target Cells Slight
[2017-02-01] MEDS: IPRATROPIUM 500 MCG/2.5 ML NEB RESP TX SCH (07:43)
[2017-02-01 07:46] LABS: Albumin 1.3 G/DL (3.4-5.0); Bilirubin,Total 6.1 MG/DL (0.2-1.0); Calcium 7.5 MG/DL (8.5-10.1); Osmolality,Calculated 309.1 MOS/KG (273-304); Potassium 3.7 MMOL/L (3.5-5.1); Total Protein 4.7 G/DL (6.4-8.3)
[2017-02-01 07:54] LABS: Albumin 1.4 G/DL (3.4-5.0); Bilirubin,Direct 5.08 MG/DL (0.0-0.20); Bilirubin,Indirect 0.7 MG/DL (0.0-1.0); Bilirubin,Total 5.8 MG/DL (0.2-1.0); Total Protein 4.7 G/DL (6.4-8.3)
[2017-02-01] MEDS: INSULIN LISPRO 100 UNIT/ML SUBCUT SCH ×4 (07:57→21:18)
[2017-02-01] MEDS: SODIUM BICARB INJ 100 MEQ in SODIUM CHLORIDE 0.45% 1,000 ML IV SCH (08:31)
[2017-02-01] MEDS ORDERED: MIDAZOLAM 2 MG/2 ML VIAL ONE (09:03)
[2017-02-01] MEDS ORDERED: fentaNYL 100 MCG/2 ML VIAL ONE (09:03)
[2017-02-01] MEDS ORDERED: SUCCINYLCHOLINE 200 MG/10 ML VIAL ONE (09:06)
[2017-02-01] MEDS ORDERED: PHENYLEPHRINE 1 MG/10 ML SYRINGE IV ONE (09:06)
[2017-02-01] MEDS ORDERED: LIDOCAINE 2% 5 ML VIAL ONE (09:06)
[2017-02-01] MEDS ORDERED: PROPOFOL 200 MG/20 ML VIAL IV ONE (09:06)
[2017-02-01] MEDS ORDERED: ONDANSETRON 4 MG/2 ML VIAL ONE (09:06)
[2017-02-01] MEDS: traMADol 50 MG TABLET PO SCH ×3 (10:36→21:19)
[2017-02-01] MEDS: amLODIPine 5 MG TABLET PO SCH (11:23)
[2017-02-01] MEDS: PANTOPRAZOLE 40 MG TABLET PO SCH (11:44)
[2017-02-01] MEDS: OMEGA 3 ACID ETHYL ESTERS 1 GM CAPSULE PO SCH (11:44)
[2017-02-01] MEDS: PRAVASTATIN 40 MG TABLET PO SCH (11:44)
[2017-02-01] MEDS: IRON (CARBONYL) 45 MG TABLET PO SCH ×2 (11:44→21:18)
[2017-02-01] MEDS: GEMFIBROZIL 600 MG TABLET PO SCH ×2 (11:44→16:53)
[2017-02-01] MEDS: NYSTATIN CREAM 15 GM TUBE TOP SCH ×3 (11:45→23:53)
[2017-02-01] MEDS: CETIRIZINE 10 MG TABLET PO SCH (11:45)
[2017-02-01] MEDS: CARVEDILOL 25 MG TABLET PO SCH ×2 (11:45→16:54)
[2017-02-01] MEDS: FLUCONAZOLE 100 MG TABLET PO SCH (11:45)
[2017-02-01] MEDS: FLUTICASONE 50 MCG NASAL SPRAY 16 GM BOTTLE BOTH NARES SCH (11:45)
[2017-02-01] MEDS: MENTHOL/ZINC OXIDE OINT 71 GM JAR TOP SCH ×2 (11:45→23:53)
[2017-02-01] MEDS: ACETAMINOPHEN 325 MG TABLET PO PRN (11:56)
[2017-02-01] MEDS: SODIUM HYPOCHLORITE 0.25% IRRIG 473 ML BOTTLE TOP SCH (16:52)
[2017-02-01] MEDS: traZODone 50 MG TABLET PO SCH (21:10)
[2017-02-01] MEDS: MONTELUKAST 10 MG TABLET PO SCH (21:10)
[2017-02-01] MEDS: GABAPENTIN 300 MG CAPSULE PO SCH (21:10)
[2017-02-02] MEDS: PIPERACILLIN/TAZOBACTAM 3,375 MG in SODIUM CHLORIDE 0.9% 100 ML IV SCH ×3 (01:41→16:50)
[2017-02-02] MEDS: IPRATROPIUM 500 MCG/2.5 ML NEB RESP TX SCH (07:11)
[2017-02-02] MEDS: SODIUM BICARB INJ 100 MEQ in SODIUM CHLORIDE 0.45% 1,000 ML IV SCH (07:51)
[2017-02-02] MEDS: INSULIN LISPRO 100 UNIT/ML SUBCUT SCH ×4 (07:51→21:18)
[2017-02-02] MEDS: OMEGA 3 ACID ETHYL ESTERS 1 GM CAPSULE PO SCH (08:21)
[2017-02-02] MEDS: IRON (CARBONYL) 45 MG TABLET PO SCH ×2 (08:21→20:42)
[2017-02-02] MEDS: CARVEDILOL 25 MG TABLET PO SCH ×2 (08:21→16:50)
[2017-02-02] MEDS: GEMFIBROZIL 600 MG TABLET PO SCH ×2 (08:21→16:50)
[2017-02-02] MEDS: URSODIOL 300 MG CAPSULE PO SCH ×2 (08:21→20:42)
[2017-02-02] MEDS: FLUCONAZOLE 100 MG TABLET PO SCH (08:21)
[2017-02-02] MEDS: PANTOPRAZOLE 40 MG TABLET PO SCH (08:22)
[2017-02-02] MEDS: amLODIPine 5 MG TABLET PO SCH (08:22)
[2017-02-02] MEDS: PRAVASTATIN 40 MG TABLET PO SCH (08:22)
[2017-02-02] MEDS: CETIRIZINE 10 MG TABLET PO SCH (10:21)
[2017-02-02] MEDS: FLUTICASONE 50 MCG NASAL SPRAY 16 GM BOTTLE BOTH NARES SCH (10:31)
[2017-02-02] MEDS: SODIUM HYPOCHLORITE 0.25% IRRIG 473 ML BOTTLE TOP SCH (12:01)
[2017-02-02] MEDS: MENTHOL/ZINC OXIDE OINT 71 GM JAR TOP SCH ×2 (12:01→20:44)
[2017-02-02] MEDS: NYSTATIN CREAM 15 GM TUBE TOP SCH ×3 (12:01→20:43)
[2017-02-02] MEDS: COLLAGENASE OINT 30 GM TUBE TOP SCH (12:02)
[2017-02-02] MEDS: ACETAMINOPHEN 325 MG TABLET PO PRN (20:41)
[2017-02-02] MEDS: traZODone 50 MG TABLET PO SCH (20:41)
[2017-02-02] MEDS: MONTELUKAST 10 MG TABLET PO SCH (20:42)
[2017-02-02] MEDS: GABAPENTIN 300 MG CAPSULE PO SCH (20:43)
[2017-02-03] MEDS: PIPERACILLIN/TAZOBACTAM 3,375 MG in SODIUM CHLORIDE 0.9% 100 ML IV SCH ×3 (01:26→17:34)
[2017-02-03] MEDS: ACETAMINOPHEN 325 MG TABLET PO PRN (03:19)
[2017-02-03] MEDS: SODIUM BICARB INJ 100 MEQ in SODIUM CHLORIDE 0.45% 1,000 ML IV SCH (06:33)
[2017-02-03] MEDS: IPRATROPIUM 500 MCG/2.5 ML NEB RESP TX SCH (06:55)
[2017-02-03 07:30] LABS: Albumin 1.4 G/DL (3.4-5.0); Bilirubin,Direct 2.85 MG/DL (0.0-0.20); Bilirubin,Total 3.8 MG/DL (0.2-1.0); Calcium 7.9 MG/DL (8.5-10.1); Magnesium 1.9 MG/DL (1.8-2.4); Potassium 3.8 MMOL/L (3.5-5.1); Total Protein 4.7 G/DL (6.4-8.3)
[2017-02-03] MEDS: INSULIN LISPRO 100 UNIT/ML SUBCUT SCH ×4 (07:52→22:25)
[2017-02-03] MEDS: NYSTATIN CREAM 15 GM TUBE TOP SCH ×3 (08:29→22:16)
[2017-02-03] MEDS: PRAVASTATIN 40 MG TABLET PO SCH (08:38)
[2017-02-03] MEDS: IRON (CARBONYL) 45 MG TABLET PO SCH ×2 (08:38→22:25)
[2017-02-03] MEDS: FLUCONAZOLE 100 MG TABLET PO SCH (08:38)
[2017-02-03] MEDS: FLUTICASONE 50 MCG NASAL SPRAY 16 GM BOTTLE BOTH NARES SCH (08:38)
[2017-02-03] MEDS: URSODIOL 300 MG CAPSULE PO SCH ×2 (08:38→22:15)
[2017-02-03] MEDS: CARVEDILOL 25 MG TABLET PO SCH ×2 (08:38→17:34)
[2017-02-03] MEDS: SODIUM HYPOCHLORITE 0.25% IRRIG 473 ML BOTTLE TOP SCH (08:38)
[2017-02-03] MEDS: GEMFIBROZIL 600 MG TABLET PO SCH ×2 (08:38→17:33)
[2017-02-03] MEDS: MENTHOL/ZINC OXIDE OINT 71 GM JAR TOP SCH ×2 (08:38→22:15)
[2017-02-03] MEDS: OMEGA 3 ACID ETHYL ESTERS 1 GM CAPSULE PO SCH (08:38)
[2017-02-03] MEDS: amLODIPine 5 MG TABLET PO SCH (08:38)
[2017-02-03] MEDS: CETIRIZINE 10 MG TABLET PO SCH (08:39)
[2017-02-03] MEDS: COLLAGENASE OINT 30 GM TUBE TOP SCH (08:39)
[2017-02-03] MEDS: PANTOPRAZOLE 40 MG TABLET PO SCH (08:39)
[2017-02-03] MEDS ORDERED: LACTATED RINGERS 1,000 ML IV SCH (10:30)
[2017-02-03] MEDS ORDERED: BUPIVACAINE 0.25% 50 ML VIAL ONE (10:33)
[2017-02-03] MEDS ORDERED: fentaNYL 100 MCG/2 ML VIAL ONE (11:33)
[2017-02-03] MEDS ORDERED: MIDAZOLAM 2 MG/2 ML VIAL ONE (11:33)
[2017-02-03] MEDS ORDERED: KETAMINE 500 MG/10 ML VIAL ONE (11:33)
[2017-02-03] MEDS ORDERED: PROPOFOL 200 MG/20 ML VIAL IV ONE (11:33)
[2017-02-03] MEDS ORDERED: HYDROmorphone 2 MG/1 ML VIAL ONE (12:20)
[2017-02-03] MEDS ORDERED: ONDANSETRON 4 MG/2 ML VIAL ONE (12:20)
[2017-02-03] MEDS ORDERED: HYDROmorphone 2 MG/1 ML VIAL IV PRN (12:38)
[2017-02-03] MEDS ORDERED: ONDANSETRON 4 MG/2 ML VIAL IV PRN (12:38)
[2017-02-03] MEDS ORDERED: MAGNESIUM SULF RIDER 2 GM in PREMIX 1 EACH IV ONE (15:33)
[2017-02-03] MEDS: ASCORBIC ACID 500 MG TABLET PO SCH (22:14)
[2017-02-03] MEDS: GABAPENTIN 300 MG CAPSULE PO SCH (22:14)
[2017-02-03] MEDS: MONTELUKAST 10 MG TABLET PO SCH (22:15)
[2017-02-03] MEDS: traZODone 50 MG TABLET PO SCH (22:15)
[2017-02-03] MEDS: POTASSIUM CITRATE 10 MEQ TABLET PO SCH (22:25)
[2017-02-04] MEDS: PIPERACILLIN/TAZOBACTAM 3,375 MG in SODIUM CHLORIDE 0.9% 100 ML IV SCH ×3 (01:39→16:31)
[2017-02-04 06:46] LABS: Albumin 1.2 G/DL (3.4-5.0); Bilirubin,Total 2.2 MG/DL (0.2-1.0); Calcium 7.6 MG/DL (8.5-10.1); Osmolality,Calculated 307.1 MOS/KG (273-304); Total Protein 4.4 G/DL (6.4-8.3)
[2017-02-04] MEDS: MENTHOL/ZINC OXIDE OINT 71 GM JAR TOP SCH ×2 (07:40→21:15)
[2017-02-04] MEDS: SODIUM HYPOCHLORITE 0.25% IRRIG 473 ML BOTTLE TOP SCH (07:40)
[2017-02-04] MEDS: IPRATROPIUM 500 MCG/2.5 ML NEB RESP TX SCH (08:01)
[2017-02-04] MEDS ORDERED: SODIUM CHLORIDE 0.9% 1,000 ML IV PRN (08:46)
[2017-02-04] MEDS: INSULIN LISPRO 100 UNIT/ML SUBCUT SCH ×4 (09:20→20:51)
[2017-02-04 10:36] LABS: Basophils % 0.2 % (0.0-0.8); Eosinophils # 0.1 10*3/uL (0.0-0.87); Eosinophils % 1.1 % (0.00-10.9); Immature Granulocytes % 4.7 %; Immature Granulocytes Absolute 0.59 #; Lymphocytes # 1.1 10*3/uL (1.4-4.0); Lymphocytes % 8.6 % (21.3-54.2); Mean Corpuscular HGB Conc 35.2 GM/DL (32-36); Mean Corpuscular Hemoglobin 30 PG (27-34); Mean Platelet Volume 10.4 FL (9.6-12.0); Monocytes # 0.9 10*3/uL (0.11-0.8); Monocytes % 6.8 % (1.7-12.7); NRBC # 0.03 10*3/uL; Neutrophils % 78.6 % (38.7-73.9); Red Blood Count 2.07 MC/CUMM (3.8-5.5); Red Cell Distribution Width 14.6 % (9.3-17.3); White Blood Count 12.7 T/CUMM (4-12)
[2017-02-04 10:48] LABS: Hemoglobin 6.2 GM/DL (12.0-16.0)
[2017-02-04 10:49] LABS: Hematocrit 17.6 VOL% (35.7-47.0); Platelet Count 215 T/CUMM (130-400)
[2017-02-04 10:53] LABS: Band Neutrophils 5 % (0-10); Eosinophils 1 % (0-10); Lymphocytes 12 % (20-55); Myelocytes 2 %; Segmented Neutrophils 77 % (50-85); Total Cells Counted 100
[2017-02-04 10:54] LABS: Hypochromasia 1+; Microcytosis 1+
[2017-02-04 10:58] LABS: Platelet Estimate Normal
[2017-02-04] MEDS: CARVEDILOL 25 MG TABLET PO SCH ×2 (11:05→16:31)
[2017-02-04] MEDS: FLUTICASONE 50 MCG NASAL SPRAY 16 GM BOTTLE BOTH NARES SCH (11:05)
[2017-02-04] MEDS: amLODIPine 5 MG TABLET PO SCH (11:05)
[2017-02-04] MEDS: URSODIOL 300 MG CAPSULE PO SCH ×2 (11:15→20:48)
[2017-02-04] MEDS: OMEGA 3 ACID ETHYL ESTERS 1 GM CAPSULE PO SCH (11:15)
[2017-02-04] MEDS: FLUCONAZOLE 100 MG TABLET PO SCH (11:15)
[2017-02-04] MEDS: GEMFIBROZIL 600 MG TABLET PO SCH ×2 (11:15→16:31)
[2017-02-04] MEDS: IRON (CARBONYL) 45 MG TABLET PO SCH ×2 (11:15→21:15)
[2017-02-04] MEDS: COLLAGENASE OINT 30 GM TUBE TOP SCH (11:16)
[2017-02-04] MEDS: ASCORBIC ACID 500 MG TABLET PO SCH ×2 (11:16→20:48)
[2017-02-04] MEDS: NYSTATIN CREAM 15 GM TUBE TOP SCH ×3 (11:16→22:41)
[2017-02-04] MEDS: SODIUM CHLORIDE 0.9% 1,000 ML IV SCH ×2 (11:16→16:32)
[2017-02-04] MEDS: PANTOPRAZOLE 40 MG TABLET PO SCH (11:16)
[2017-02-04] MEDS: PRAVASTATIN 40 MG TABLET PO SCH (11:16)
[2017-02-04] MEDS: POTASSIUM CITRATE 10 MEQ TABLET PO SCH (11:16)
[2017-02-04] MEDS: CETIRIZINE 10 MG TABLET PO SCH (11:17)
[2017-02-04] MEDS: ACETAMINOPHEN 325 MG TABLET PO PRN (16:31)
[2017-02-04] MEDS: PROMETHAZINE 25 MG TABLET PO PRN (19:48)
[2017-02-04] MEDS: MONTELUKAST 10 MG TABLET PO SCH (20:48)
[2017-02-04] MEDS: GABAPENTIN 300 MG CAPSULE PO SCH (20:48)
[2017-02-04] MEDS: traZODone 50 MG TABLET PO SCH (20:49)
[2017-02-05] MEDS: PIPERACILLIN/TAZOBACTAM 3,375 MG in SODIUM CHLORIDE 0.9% 100 ML IV SCH ×3 (00:58→18:31)
[2017-02-05] MEDS: PROMETHAZINE 25 MG TABLET PO PRN ×2 (05:01→21:19)
[2017-02-05] MEDS: SODIUM CHLORIDE 0.9% 1,000 ML IV SCH ×2 (06:11→09:57)
[2017-02-05 06:18] LABS: Basophils % 0.3 % (0.0-0.8); Eosinophils # 0.3 10*3/uL (0.0-0.87); Eosinophils % 2.7 % (0.00-10.9); Hematocrit 20.9 VOL% (35.7-47.0); Hemoglobin 7.4 GM/DL (12.0-16.0); Immature Granulocytes % 4.2 %; Immature Granulocytes Absolute 0.52 #; Lymphocytes # 1.7 10*3/uL (1.4-4.0); Lymphocytes % 13.8 % (21.3-54.2); Mean Corpuscular HGB Conc 35.4 GM/DL (32-36); Mean Corpuscular Hemoglobin 29 PG (27-34); Mean Corpuscular Volume 82.3 FL (87-102); Mean Platelet Volume 11.2 FL (9.6-12.0); Monocytes # 1.1 10*3/uL (0.11-0.8); Monocytes % 8.7 % (1.7-12.7); NRBC # 0.02 10*3/uL; Neutrophils # 8.7 10*3/uL (1.4-7.4); Neutrophils % 70.3 % (38.7-73.9); Platelet Count 211 T/CUMM (130-400); Red Blood Count 2.54 MC/CUMM (3.8-5.5); Red Cell Distribution Width 15.5 % (9.3-17.3); White Blood Count 12.4 T/CUMM (4-12)
[2017-02-05 06:48] LABS: Calcium 7.7 MG/DL (8.5-10.1); Osmolality,Calculated 305.3 MOS/KG (273-304)
[2017-02-05 06:49] LABS: Burr Cells Slight; Eosinophils 4 % (0-10); Giant Platelets Few; Hypochromasia 1+; Lymphocytes 19 % (20-55); Microcytosis Slight; Ovalocytes Slight; Platelet Estimate Adequate; Segmented Neutrophils 74 % (50-85); Total Cells Counted 100
[2017-02-05] MEDS: IPRATROPIUM 500 MCG/2.5 ML NEB RESP TX SCH (07:29)
[2017-02-05] MEDS ORDERED: SODIUM CHLORIDE 0.9% 1,000 ML IV PRN (08:07)
[2017-02-05] MEDS: INSULIN LISPRO 100 UNIT/ML SUBCUT SCH ×4 (08:14→21:15)
[2017-02-05] MEDS: amLODIPine 5 MG TABLET PO SCH (09:55)
[2017-02-05] MEDS: URSODIOL 300 MG CAPSULE PO SCH ×2 (09:55→21:13)
[2017-02-05] MEDS: POTASSIUM CITRATE 10 MEQ TABLET PO SCH (09:55)
[2017-02-05] MEDS: CETIRIZINE 10 MG TABLET PO SCH (09:56)
[2017-02-05] MEDS: CARVEDILOL 25 MG TABLET PO SCH ×2 (09:56→18:21)
[2017-02-05] MEDS: OMEGA 3 ACID ETHYL ESTERS 1 GM CAPSULE PO SCH (09:56)
[2017-02-05] MEDS: GEMFIBROZIL 600 MG TABLET PO SCH ×2 (09:56→18:31)
[2017-02-05] MEDS: PANTOPRAZOLE 40 MG TABLET PO SCH (09:56)
[2017-02-05] MEDS: NYSTATIN CREAM 15 GM TUBE TOP SCH ×3 (09:56→21:12)
[2017-02-05] MEDS: FLUCONAZOLE 100 MG TABLET PO SCH (09:56)
[2017-02-05] MEDS: ASCORBIC ACID 500 MG TABLET PO SCH ×2 (09:56→21:13)
[2017-02-05] MEDS: MENTHOL/ZINC OXIDE OINT 71 GM JAR TOP SCH ×2 (09:56→21:15)
[2017-02-05] MEDS: FLUTICASONE 50 MCG NASAL SPRAY 16 GM BOTTLE BOTH NARES SCH (09:56)
[2017-02-05] MEDS: SODIUM HYPOCHLORITE 0.25% IRRIG 473 ML BOTTLE TOP SCH (09:56)
[2017-02-05] MEDS: COLLAGENASE OINT 30 GM TUBE TOP SCH (09:58)
[2017-02-05] MEDS: IRON (CARBONYL) 45 MG TABLET PO SCH ×2 (10:04→21:13)
[2017-02-05] MEDS: PRAVASTATIN 40 MG TABLET PO SCH (10:04)
[2017-02-05] MEDS ORDERED: FUROSEMIDE 40 MG/4 ML VIAL IV ONE (16:53)
[2017-02-05] MEDS: traZODone 50 MG TABLET PO SCH (21:13)
[2017-02-05] MEDS: GABAPENTIN 300 MG CAPSULE PO SCH (21:13)
[2017-02-05] MEDS: MONTELUKAST 10 MG TABLET PO SCH (21:13)
[2017-02-06] MEDS: PIPERACILLIN/TAZOBACTAM 3,375 MG in SODIUM CHLORIDE 0.9% 100 ML IV SCH ×3 (01:34→17:17)
[2017-02-06 06:23] LABS: Basophils # 0.1 10*3/uL (0.0-0.2); Basophils % 0.4 % (0.0-0.8); Eosinophils # 0.5 10*3/uL (0.0-0.87); Eosinophils % 3.4 % (0.00-10.9); Hematocrit 25.5 VOL% (35.7-47.0); Hemoglobin 8.8 GM/DL (12.0-16.0); Immature Granulocytes % 2.8 %; Immature Granulocytes Absolute 0.38 #; Lymphocytes # 2.1 10*3/uL (1.4-4.0); Lymphocytes % 15.3 % (21.3-54.2); Mean Corpuscular HGB Conc 34.5 GM/DL (32-36); Mean Corpuscular Hemoglobin 28 PG (27-34); Mean Corpuscular Volume 81.5 FL (87-102); Monocytes # 1.1 10*3/uL (0.11-0.8); Monocytes % 7.9 % (1.7-12.7); NRBC # 0.02 10*3/uL; Neutrophils # 9.7 10*3/uL (1.4-7.4); Neutrophils % 70.2 % (38.7-73.9); Platelet Count 223 T/CUMM (130-400); Red Blood Count 3.13 MC/CUMM (3.8-5.5); Red Cell Distribution Width 15.8 % (9.3-17.3); White Blood Count 13.8 T/CUMM (4-12)
[2017-02-06] MEDS: IPRATROPIUM 500 MCG/2.5 ML NEB RESP TX SCH (07:01)
[2017-02-06 07:02] LABS: Calcium 7.8 MG/DL (8.5-10.1); Osmolality,Calculated 303.3 MOS/KG (273-304)
[2017-02-06] MEDS: INSULIN LISPRO 100 UNIT/ML SUBCUT SCH ×3 (09:13→17:18)
[2017-02-06] MEDS: FLUCONAZOLE 100 MG TABLET PO SCH (09:14)
[2017-02-06] MEDS: PRAVASTATIN 40 MG TABLET PO SCH (09:14)
[2017-02-06] MEDS: amLODIPine 5 MG TABLET PO SCH (09:14)
[2017-02-06] MEDS: glipiZIDE 5 MG TABLET PO SCH (09:14)
[2017-02-06] MEDS: PANTOPRAZOLE 40 MG TABLET PO SCH (09:14)
[2017-02-06] MEDS: OMEGA 3 ACID ETHYL ESTERS 1 GM CAPSULE PO SCH (09:14)
[2017-02-06] MEDS: CETIRIZINE 10 MG TABLET PO SCH (09:14)
[2017-02-06] MEDS: GEMFIBROZIL 600 MG TABLET PO SCH ×2 (09:14→17:17)
[2017-02-06] MEDS: URSODIOL 300 MG CAPSULE PO SCH ×2 (09:14→21:44)
[2017-02-06] MEDS: CARVEDILOL 25 MG TABLET PO SCH ×2 (09:14→17:17)
[2017-02-06] MEDS: POTASSIUM CITRATE 10 MEQ TABLET PO SCH (09:14)
[2017-02-06] MEDS: FLUTICASONE 50 MCG NASAL SPRAY 16 GM BOTTLE BOTH NARES SCH (09:15)
[2017-02-06] MEDS: NYSTATIN CREAM 15 GM TUBE TOP SCH ×3 (09:15→21:45)
[2017-02-06] MEDS: ASCORBIC ACID 500 MG TABLET PO SCH ×2 (09:15→21:44)
[2017-02-06] MEDS: IRON (CARBONYL) 45 MG TABLET PO SCH ×2 (09:15→21:44)
[2017-02-06] MEDS: SODIUM BICARB INJ 100 MEQ in SODIUM CHLORIDE 0.45% 1,000 ML IV SCH (09:58)
[2017-02-06] MEDS: MENTHOL/ZINC OXIDE OINT 71 GM JAR TOP SCH ×2 (14:30→21:45)
[2017-02-06] MEDS: COLLAGENASE OINT 30 GM TUBE TOP SCH (14:30)
[2017-02-06] MEDS: SODIUM HYPOCHLORITE 0.25% IRRIG 473 ML BOTTLE TOP SCH (14:30)
[2017-02-06] MEDS: traZODone 50 MG TABLET PO SCH (21:44)
[2017-02-06] MEDS: PROMETHAZINE 25 MG TABLET PO PRN (21:44)
[2017-02-06] MEDS: MONTELUKAST 10 MG TABLET PO SCH (21:44)
[2017-02-06] MEDS: GABAPENTIN 300 MG CAPSULE PO SCH (21:44)
[2017-02-07] MEDS: INSULIN LISPRO 100 UNIT/ML SUBCUT SCH ×5 (00:11→21:24)
[2017-02-07] MEDS: PIPERACILLIN/TAZOBACTAM 3,375 MG in SODIUM CHLORIDE 0.9% 100 ML IV SCH ×3 (00:29→16:53)
[2017-02-07 06:20] LABS: Basophils # 0.1 10*3/uL (0.0-0.2); Basophils % 0.4 % (0.0-0.8); Eosinophils # 0.6 10*3/uL (0.0-0.87); Eosinophils % 4.4 % (0.00-10.9); Hematocrit 26.3 VOL% (35.7-47.0); Hemoglobin 9.1 GM/DL (12.0-16.0); Immature Granulocytes % 1.9 %; Immature Granulocytes Absolute 0.26 #; Lymphocytes # 2.7 10*3/uL (1.4-4.0); Lymphocytes % 19.6 % (21.3-54.2); Mean Corpuscular HGB Conc 34.6 GM/DL (32-36); Mean Corpuscular Hemoglobin 29 PG (27-34); Mean Platelet Volume 11.1 FL (9.6-12.0); Monocytes # 1.1 10*3/uL (0.11-0.8); Monocytes % 8.4 % (1.7-12.7); Neutrophils # 8.8 10*3/uL (1.4-7.4); Neutrophils % 65.3 % (38.7-73.9); Platelet Count 247 T/CUMM (130-400); Red Blood Count 3.17 MC/CUMM (3.8-5.5); Red Cell Distribution Width 16.2 % (9.3-17.3); White Blood Count 13.5 T/CUMM (4-12)
[2017-02-07 06:56] LABS: Albumin 1.4 G/DL (3.4-5.0); Bilirubin,Total 1.6 MG/DL (0.2-1.0); Calcium 7.8 MG/DL (8.5-10.1); Potassium 4.1 MMOL/L (3.5-5.1); Total Protein 4.5 G/DL (6.4-8.3)
[2017-02-07] MEDS: IPRATROPIUM 500 MCG/2.5 ML NEB RESP TX SCH (07:34)
[2017-02-07] MEDS: FLUCONAZOLE 100 MG TABLET PO SCH (09:17)
[2017-02-07] MEDS: PANTOPRAZOLE 40 MG TABLET PO SCH (09:17)
[2017-02-07] MEDS: amLODIPine 5 MG TABLET PO SCH (09:17)
[2017-02-07] MEDS: glipiZIDE 5 MG TABLET PO SCH (09:17)
[2017-02-07] MEDS: URSODIOL 300 MG CAPSULE PO SCH ×2 (09:17→21:24)
[2017-02-07] MEDS: CETIRIZINE 10 MG TABLET PO SCH (09:17)
[2017-02-07] MEDS: PRAVASTATIN 40 MG TABLET PO SCH (09:17)
[2017-02-07] MEDS: CARVEDILOL 25 MG TABLET PO SCH ×2 (09:17→16:54)
[2017-02-07] MEDS: OMEGA 3 ACID ETHYL ESTERS 1 GM CAPSULE PO SCH (09:17)
[2017-02-07] MEDS: GEMFIBROZIL 600 MG TABLET PO SCH ×2 (09:17→16:54)
[2017-02-07] MEDS: POTASSIUM CITRATE 10 MEQ TABLET PO SCH (09:17)
[2017-02-07] MEDS: IRON (CARBONYL) 45 MG TABLET PO SCH ×2 (09:18→21:35)
[2017-02-07] MEDS: FLUTICASONE 50 MCG NASAL SPRAY 16 GM BOTTLE BOTH NARES SCH (09:19)
[2017-02-07] MEDS: MENTHOL/ZINC OXIDE OINT 71 GM JAR TOP SCH ×2 (11:52→21:35)
[2017-02-07] MEDS: COLLAGENASE OINT 30 GM TUBE TOP SCH (11:53)
[2017-02-07] MEDS: SODIUM HYPOCHLORITE 0.25% IRRIG 473 ML BOTTLE TOP SCH (11:53)
[2017-02-07] MEDS: NYSTATIN CREAM 15 GM TUBE TOP SCH ×3 (11:53→21:34)
[2017-02-07] MEDS: ASCORBIC ACID 500 MG TABLET PO SCH ×2 (14:53→21:24)
[2017-02-07] MEDS: DESITIN 4OZ/NYSTATIN 15 GRAM MIXTURE PASTE TOP SCH ×2 (18:39→21:43)
[2017-02-07] MEDS ORDERED: DESITIN 4OZ/NYSTATIN 15 GRAM MIXTURE PASTE TOP SCH (21:00)
[2017-02-07] MEDS: GABAPENTIN 300 MG CAPSULE PO SCH (21:24)
[2017-02-07] MEDS: MONTELUKAST 10 MG TABLET PO SCH (21:24)
[2017-02-07] MEDS: traZODone 50 MG TABLET PO SCH (21:24)
[2017-02-08] MEDS: PIPERACILLIN/TAZOBACTAM 3,375 MG in SODIUM CHLORIDE 0.9% 100 ML IV SCH ×3 (01:01→17:11)
[2017-02-08] MEDS: ONDANSETRON 4 MG/2 ML VIAL IV PRN (05:25)
[2017-02-08 06:15] LABS: Basophils # 0.1 10*3/uL (0.0-0.2); Basophils % 0.4 % (0.0-0.8); Eosinophils # 0.7 10*3/uL (0.0-0.87); Eosinophils % 4.7 % (0.00-10.9); Hematocrit 26.6 VOL% (35.7-47.0); Hemoglobin 8.7 GM/DL (12.0-16.0); Immature Granulocytes % 1.6 %; Immature Granulocytes Absolute 0.23 #; Lymphocytes # 2.8 10*3/uL (1.4-4.0); Lymphocytes % 18.7 % (21.3-54.2); Mean Corpuscular HGB Conc 32.7 GM/DL (32-36); Mean Corpuscular Hemoglobin 28 PG (27-34); Mean Corpuscular Volume 86.4 FL (87-102); Mean Platelet Volume 10.8 FL (9.6-12.0); Monocytes # 1.2 10*3/uL (0.11-0.8); Monocytes % 7.9 % (1.7-12.7); Neutrophils # 9.9 10*3/uL (1.4-7.4); Neutrophils % 66.7 % (38.7-73.9); Platelet Count 298 T/CUMM (130-400); Red Blood Count 3.08 MC/CUMM (3.8-5.5); Red Cell Distribution Width 16.5 % (9.3-17.3); White Blood Count 14.8 T/CUMM (4-12)
[2017-02-08 06:43] LABS: Calcium 7.8 MG/DL (8.5-10.1); Osmolality,Calculated 296.1 MOS/KG (273-304); Potassium 4.2 MMOL/L (3.5-5.1)
[2017-02-08] MEDS: IPRATROPIUM 500 MCG/2.5 ML NEB RESP TX SCH (08:05)
[2017-02-08] MEDS: POTASSIUM CITRATE 10 MEQ TABLET PO SCH (09:12)
[2017-02-08] MEDS: amLODIPine 5 MG TABLET PO SCH (09:12)
[2017-02-08] MEDS: OMEGA 3 ACID ETHYL ESTERS 1 GM CAPSULE PO SCH (09:12)
[2017-02-08] MEDS: PRAVASTATIN 40 MG TABLET PO SCH (09:12)
[2017-02-08] MEDS: CARVEDILOL 25 MG TABLET PO SCH ×2 (09:12→17:11)
[2017-02-08] MEDS: PANTOPRAZOLE 40 MG TABLET PO SCH (09:12)
[2017-02-08] MEDS: IRON (CARBONYL) 45 MG TABLET PO SCH ×2 (09:12→21:05)
[2017-02-08] MEDS: URSODIOL 300 MG CAPSULE PO SCH ×2 (09:12→21:03)
[2017-02-08] MEDS: GEMFIBROZIL 600 MG TABLET PO SCH ×2 (09:12→17:11)
[2017-02-08] MEDS: FLUCONAZOLE 100 MG TABLET PO SCH (09:12)
[2017-02-08] MEDS: CETIRIZINE 10 MG TABLET PO SCH (09:12)
[2017-02-08] MEDS: ASCORBIC ACID 500 MG TABLET PO SCH ×2 (09:12→21:01)
[2017-02-08] MEDS: glipiZIDE 5 MG TABLET PO SCH (09:12)
[2017-02-08] MEDS: MENTHOL/ZINC OXIDE OINT 71 GM JAR TOP SCH ×2 (09:13→21:06)
[2017-02-08] MEDS: FLUTICASONE 50 MCG NASAL SPRAY 16 GM BOTTLE BOTH NARES SCH (09:14)
[2017-02-08] MEDS: DESITIN 4OZ/NYSTATIN 15 GRAM MIXTURE PASTE TOP SCH ×2 (09:14→21:04)
[2017-02-08] MEDS: SODIUM HYPOCHLORITE 0.25% IRRIG 473 ML BOTTLE TOP SCH (09:14)
[2017-02-08] MEDS: NYSTATIN CREAM 15 GM TUBE TOP SCH ×3 (09:14→21:04)
[2017-02-08] MEDS: COLLAGENASE OINT 30 GM TUBE TOP SCH (09:14)
[2017-02-08] MEDS: INSULIN LISPRO 100 UNIT/ML SUBCUT SCH ×4 (09:18→21:54)
[2017-02-08] MEDS ORDERED: SKIN HEALING OINT (AQUAPHOR) 50 GM TUBE TOP PRN (15:32)
[2017-02-08] MEDS: SIMETHICONE CHEW 80 MG TABLET PO PRN (18:18)
[2017-02-08] MEDS: GABAPENTIN 300 MG CAPSULE PO SCH (21:01)
[2017-02-08] MEDS: MONTELUKAST 10 MG TABLET PO SCH (21:01)
[2017-02-08] MEDS: traZODone 50 MG TABLET PO SCH (21:02)
[2017-02-08] MEDS: DOCUSATE SODIUM 100 MG CAPSULE PO SCH (21:02)
[2017-02-09] MEDS: PIPERACILLIN/TAZOBACTAM 3,375 MG in SODIUM CHLORIDE 0.9% 100 ML IV SCH ×3 (00:22→16:42)
[2017-02-09 06:20] LABS: Basophils % 0.3 % (0.0-0.8); Eosinophils # 0.5 10*3/uL (0.0-0.87); Eosinophils % 3.2 % (0.00-10.9); Hematocrit 23.9 VOL% (35.7-47.0); Hemoglobin 7.9 GM/DL (12.0-16.0); Immature Granulocytes % 0.8 %; Immature Granulocytes Absolute 0.12 #; Lymphocytes # 2.9 10*3/uL (1.4-4.0); Lymphocytes % 19.1 % (21.3-54.2); Mean Corpuscular HGB Conc 33.1 GM/DL (32-36); Mean Corpuscular Hemoglobin 28 PG (27-34); Mean Corpuscular Volume 85.7 FL (87-102); Mean Platelet Volume 10.4 FL (9.6-12.0); Monocytes # 1.3 10*3/uL (0.11-0.8); Monocytes % 8.6 % (1.7-12.7); Neutrophils # 10.4 10*3/uL (1.4-7.4); Platelet Count 319 T/CUMM (130-400); Red Blood Count 2.79 MC/CUMM (3.8-5.5); Red Cell Distribution Width 16.6 % (9.3-17.3); White Blood Count 15.2 T/CUMM (4-12)
[2017-02-09 06:50] LABS: Calcium 7.9 MG/DL (8.5-10.1); Osmolality,Calculated 295.8 MOS/KG (273-304); Potassium 4.3 MMOL/L (3.5-5.1)
[2017-02-09] MEDS: IPRATROPIUM 500 MCG/2.5 ML NEB RESP TX SCH (07:07)
[2017-02-09] MEDS ORDERED: FUROSEMIDE 40 MG/4 ML VIAL IV ONE (08:29)
[2017-02-09] MEDS ORDERED: SODIUM CHLORIDE 0.9% 1,000 ML IV PRN (08:37)
[2017-02-09] MEDS: glipiZIDE 5 MG TABLET PO SCH (08:38)
[2017-02-09] MEDS: INSULIN LISPRO 100 UNIT/ML SUBCUT SCH ×4 (08:38→22:40)
[2017-02-09] MEDS: POTASSIUM CITRATE 10 MEQ TABLET PO SCH (09:26)
[2017-02-09] MEDS: PRAVASTATIN 40 MG TABLET PO SCH (09:26)
[2017-02-09] MEDS: amLODIPine 5 MG TABLET PO SCH (09:26)
[2017-02-09] MEDS: FLUCONAZOLE 100 MG TABLET PO SCH (09:26)
[2017-02-09] MEDS: ASCORBIC ACID 500 MG TABLET PO SCH ×2 (09:26→22:42)
[2017-02-09] MEDS: OMEGA 3 ACID ETHYL ESTERS 1 GM CAPSULE PO SCH (09:26)
[2017-02-09] MEDS: CARVEDILOL 25 MG TABLET PO SCH ×2 (09:26→16:41)
[2017-02-09] MEDS: URSODIOL 300 MG CAPSULE PO SCH ×2 (09:26→22:42)
[2017-02-09] MEDS: GEMFIBROZIL 600 MG TABLET PO SCH ×2 (09:27→16:41)
[2017-02-09] MEDS: CETIRIZINE 10 MG TABLET PO SCH (09:27)
[2017-02-09] MEDS: SIMETHICONE CHEW 80 MG TABLET PO PRN (09:27)
[2017-02-09] MEDS: PANTOPRAZOLE 40 MG TABLET PO SCH (09:27)
[2017-02-09] MEDS: MENTHOL/ZINC OXIDE OINT 71 GM JAR TOP SCH (10:19)
[2017-02-09] MEDS: COLLAGENASE OINT 30 GM TUBE TOP SCH (10:19)
[2017-02-09] MEDS: DESITIN 4OZ/NYSTATIN 15 GRAM MIXTURE PASTE TOP SCH (10:19)
[2017-02-09] MEDS: SODIUM HYPOCHLORITE 0.25% IRRIG 473 ML BOTTLE TOP SCH (10:19)
[2017-02-09] MEDS: NYSTATIN CREAM 15 GM TUBE TOP SCH ×4 (10:19→22:49)
[2017-02-09] MEDS: FLUTICASONE 50 MCG NASAL SPRAY 16 GM BOTTLE BOTH NARES SCH (10:19)
[2017-02-09] MEDS: IRON (CARBONYL) 45 MG TABLET PO SCH (10:19)
[2017-02-09] MEDS: MONTELUKAST 10 MG TABLET PO SCH (22:42)
[2017-02-09] MEDS: DOCUSATE SODIUM 100 MG CAPSULE PO SCH (22:43)
[2017-02-09] MEDS: traZODone 50 MG TABLET PO SCH (22:44)
[2017-02-09] MEDS: GABAPENTIN 300 MG CAPSULE PO SCH (22:44)
[2017-02-10 00:55] LABS: Hematocrit 30.1 VOL% (35.7-47.0)
[2017-02-10] MEDS: MENTHOL/ZINC OXIDE OINT 71 GM JAR TOP SCH ×3 (01:25→23:42)
[2017-02-10] MEDS: DESITIN 4OZ/NYSTATIN 15 GRAM MIXTURE PASTE TOP SCH ×3 (01:25→23:43)
[2017-02-10] MEDS: IRON (CARBONYL) 45 MG TABLET PO SCH ×3 (01:25→23:43)
[2017-02-10] MEDS: PIPERACILLIN/TAZOBACTAM 3,375 MG in SODIUM CHLORIDE 0.9% 100 ML IV SCH ×3 (02:32→17:41)
[2017-02-10 07:11] LABS: Basophils # 0.1 10*3/uL (0.0-0.2); Basophils % 0.4 % (0.0-0.8); Eosinophils # 0.6 10*3/uL (0.0-0.87); Eosinophils % 4.1 % (0.00-10.9); Hematocrit 29.4 VOL% (35.7-47.0); Hemoglobin 9.9 GM/DL (12.0-16.0); Immature Granulocytes % 0.6 %; Immature Granulocytes Absolute 0.09 #; Lymphocytes % 21.1 % (21.3-54.2); Mean Corpuscular HGB Conc 33.7 GM/DL (32-36); Mean Corpuscular Hemoglobin 30 PG (27-34); Mean Corpuscular Volume 87.5 FL (87-102); Mean Platelet Volume 10.6 FL (9.6-12.0); Monocytes # 1.6 10*3/uL (0.11-0.8); Neutrophils # 8.9 10*3/uL (1.4-7.4); Neutrophils % 62.8 % (38.7-73.9); Platelet Count 367 T/CUMM (130-400); Red Blood Count 3.36 MC/CUMM (3.8-5.5); Red Cell Distribution Width 16.5 % (9.3-17.3); White Blood Count 14.1 T/CUMM (4-12)
[2017-02-10 07:36] LABS: Osmolality,Calculated 294.1 MOS/KG (273-304); Potassium 4.3 MMOL/L (3.5-5.1)
[2017-02-10] MEDS: INSULIN LISPRO 100 UNIT/ML SUBCUT SCH ×4 (08:12→21:43)
[2017-02-10] MEDS: IPRATROPIUM 500 MCG/2.5 ML NEB RESP TX SCH (08:37)
[2017-02-10] MEDS ORDERED: FUROSEMIDE 40 MG/4 ML VIAL IV ONE (08:49)
[2017-02-10] MEDS: PANTOPRAZOLE 40 MG TABLET PO SCH (09:40)
[2017-02-10] MEDS: CETIRIZINE 10 MG TABLET PO SCH (09:40)
[2017-02-10] MEDS: ASCORBIC ACID 500 MG TABLET PO SCH ×2 (09:41→21:36)
[2017-02-10] MEDS: PRAVASTATIN 40 MG TABLET PO SCH (09:41)
[2017-02-10] MEDS: FLUCONAZOLE 100 MG TABLET PO SCH (09:42)
[2017-02-10] MEDS: glipiZIDE 5 MG TABLET PO SCH (09:42)
[2017-02-10] MEDS: amLODIPine 5 MG TABLET PO SCH (09:43)
[2017-02-10] MEDS: OMEGA 3 ACID ETHYL ESTERS 1 GM CAPSULE PO SCH (09:43)
[2017-02-10] MEDS: POTASSIUM CITRATE 10 MEQ TABLET PO SCH (09:44)
[2017-02-10] MEDS: CARVEDILOL 25 MG TABLET PO SCH ×2 (09:44→17:41)
[2017-02-10] MEDS: GEMFIBROZIL 600 MG TABLET PO SCH ×2 (09:45→17:41)
[2017-02-10] MEDS: URSODIOL 300 MG CAPSULE PO SCH ×2 (09:45→21:37)
[2017-02-10] MEDS: FLUTICASONE 50 MCG NASAL SPRAY 16 GM BOTTLE BOTH NARES SCH (09:46)
[2017-02-10] MEDS ORDERED: TUBERCULIN SKIN TEST 0.1 ML SYRINGE INTRADERM ONE (12:03)
[2017-02-10] MEDS: COLLAGENASE OINT 30 GM TUBE TOP SCH (15:31)
[2017-02-10] MEDS: SODIUM HYPOCHLORITE 0.25% IRRIG 473 ML BOTTLE TOP SCH (15:31)
[2017-02-10] MEDS: NYSTATIN CREAM 15 GM TUBE TOP SCH ×3 (15:31→23:43)
[2017-02-10] MEDS: GABAPENTIN 300 MG CAPSULE PO SCH (21:36)
[2017-02-10] MEDS: traZODone 50 MG TABLET PO SCH (21:36)
[2017-02-10] MEDS: DOCUSATE SODIUM 100 MG CAPSULE PO SCH (21:37)
[2017-02-10] MEDS: MONTELUKAST 10 MG TABLET PO SCH (21:37)
[2017-02-11] MEDS: PIPERACILLIN/TAZOBACTAM 3,375 MG in SODIUM CHLORIDE 0.9% 100 ML IV SCH (01:33)
[2017-02-11 03:46] LABS: Basophils # 0.1 10*3/uL (0.0-0.2); Basophils % 0.5 % (0.0-0.8); Eosinophils # 0.5 10*3/uL (0.0-0.87); Eosinophils % 4.5 % (0.00-10.9); Hematocrit 29.6 VOL% (35.7-47.0); Hemoglobin 9.8 GM/DL (12.0-16.0); Immature Granulocytes % 0.5 %; Immature Granulocytes Absolute 0.06 #; Lymphocytes # 2.5 10*3/uL (1.4-4.0); Lymphocytes % 22.3 % (21.3-54.2); Mean Corpuscular HGB Conc 33.1 GM/DL (32-36); Mean Corpuscular Hemoglobin 29 PG (27-34); Mean Corpuscular Volume 87.8 FL (87-102); Mean Platelet Volume 10.6 FL (9.6-12.0); Monocytes # 1.6 10*3/uL (0.11-0.8); Neutrophils # 6.4 10*3/uL (1.4-7.4); Neutrophils % 58.2 % (38.7-73.9); Platelet Count 374 T/CUMM (130-400); Red Blood Count 3.37 MC/CUMM (3.8-5.5); Red Cell Distribution Width 16.2 % (9.3-17.3); White Blood Count 11.1 T/CUMM (4-12)
[2017-02-11 04:00] LABS: Calcium 7.7 MG/DL (8.5-10.1); Osmolality,Calculated 289.3 MOS/KG (273-304); Potassium 4.2 MMOL/L (3.5-5.1)
[2017-02-11] MEDS: IPRATROPIUM 500 MCG/2.5 ML NEB RESP TX SCH (07:33)
[2017-02-11] MEDS: INSULIN LISPRO 100 UNIT/ML SUBCUT SCH ×4 (08:35→20:42)
[2017-02-11] MEDS: glipiZIDE 5 MG TABLET PO SCH (09:52)
[2017-02-11] MEDS: CARVEDILOL 25 MG TABLET PO SCH ×2 (09:52→17:23)
[2017-02-11] MEDS: FLUCONAZOLE 100 MG TABLET PO SCH (09:52)
[2017-02-11] MEDS: GEMFIBROZIL 600 MG TABLET PO SCH ×2 (09:52→17:23)
[2017-02-11] MEDS: PANTOPRAZOLE 40 MG TABLET PO SCH (09:52)
[2017-02-11] MEDS: URSODIOL 300 MG CAPSULE PO SCH ×2 (09:52→20:46)
[2017-02-11] MEDS: POTASSIUM CITRATE 10 MEQ TABLET PO SCH (09:52)
[2017-02-11] MEDS: ASCORBIC ACID 500 MG TABLET PO SCH ×2 (09:52→20:46)
[2017-02-11] MEDS: FLUTICASONE 50 MCG NASAL SPRAY 16 GM BOTTLE BOTH NARES SCH (09:53)
[2017-02-11] MEDS: amLODIPine 5 MG TABLET PO SCH (09:53)
[2017-02-11] MEDS: PRAVASTATIN 40 MG TABLET PO SCH (09:53)
[2017-02-11] MEDS: CETIRIZINE 10 MG TABLET PO SCH (09:53)
[2017-02-11] MEDS: OMEGA 3 ACID ETHYL ESTERS 1 GM CAPSULE PO SCH (09:53)
[2017-02-11] MEDS: NYSTATIN CREAM 15 GM TUBE TOP SCH ×3 (10:45→20:48)
[2017-02-11] MEDS: COLLAGENASE OINT 30 GM TUBE TOP SCH (10:45)
[2017-02-11] MEDS: SODIUM HYPOCHLORITE 0.25% IRRIG 473 ML BOTTLE TOP SCH (10:45)
[2017-02-11] MEDS: DESITIN 4OZ/NYSTATIN 15 GRAM MIXTURE PASTE TOP SCH ×2 (10:45→20:49)
[2017-02-11] MEDS: MENTHOL/ZINC OXIDE OINT 71 GM JAR TOP SCH ×2 (10:45→20:50)
[2017-02-11] MEDS: IRON (CARBONYL) 45 MG TABLET PO SCH ×2 (12:18→20:46)
[2017-02-11] MEDS: MONTELUKAST 10 MG TABLET PO SCH (20:46)
[2017-02-11] MEDS: traZODone 50 MG TABLET PO SCH (20:46)
[2017-02-11] MEDS: GABAPENTIN 300 MG CAPSULE PO SCH (20:46)
[2017-02-11] MEDS: DOCUSATE SODIUM 100 MG CAPSULE PO SCH (20:48)
[2017-02-12 05:55] LABS: Basophils # 0.1 10*3/uL (0.0-0.2); Basophils % 0.7 % (0.0-0.8); Eosinophils # 0.4 10*3/uL (0.0-0.87); Eosinophils % 4.3 % (0.00-10.9); Hematocrit 29.2 VOL% (35.7-47.0); Hemoglobin 9.7 GM/DL (12.0-16.0); Immature Granulocytes % 0.7 %; Immature Granulocytes Absolute 0.07 #; Lymphocytes # 2.7 10*3/uL (1.4-4.0); Lymphocytes % 28.7 % (21.3-54.2); Mean Corpuscular HGB Conc 33.2 GM/DL (32-36); Mean Corpuscular Hemoglobin 29 PG (27-34); Mean Corpuscular Volume 87.2 FL (87-102); Mean Platelet Volume 10.3 FL (9.6-12.0); Monocytes # 1.8 10*3/uL (0.11-0.8); Monocytes % 19.3 % (1.7-12.7); Neutrophils # 4.4 10*3/uL (1.4-7.4); Neutrophils % 46.3 % (38.7-73.9); Platelet Count 342 T/CUMM (130-400); Red Blood Count 3.35 MC/CUMM (3.8-5.5); Red Cell Distribution Width 16.3 % (9.3-17.3); White Blood Count 9.5 T/CUMM (4-12)
[2017-02-12 06:25] LABS: Lymphocytes 29 % (20-55); Platelet Estimate Normal; Segmented Neutrophils 61 % (50-85); Total Cells Counted 100
[2017-02-12 06:40] LABS: Calcium 7.9 MG/DL (8.5-10.1); Osmolality,Calculated 286.4 MOS/KG (273-304); Potassium 4.4 MMOL/L (3.5-5.1)
[2017-02-12] MEDS: IPRATROPIUM 500 MCG/2.5 ML NEB RESP TX SCH (07:21)
[2017-02-12] MEDS: INSULIN LISPRO 100 UNIT/ML SUBCUT SCH ×4 (07:42→21:04)
[2017-02-12] MEDS: PRAVASTATIN 40 MG TABLET PO SCH (08:35)
[2017-02-12] MEDS: URSODIOL 300 MG CAPSULE PO SCH ×2 (08:35→20:57)
[2017-02-12] MEDS: CETIRIZINE 10 MG TABLET PO SCH (08:36)
[2017-02-12] MEDS: ASCORBIC ACID 500 MG TABLET PO SCH ×2 (08:36→21:01)
[2017-02-12] MEDS: PANTOPRAZOLE 40 MG TABLET PO SCH (08:36)
[2017-02-12] MEDS: FLUCONAZOLE 100 MG TABLET PO SCH (08:36)
[2017-02-12] MEDS: amLODIPine 5 MG TABLET PO SCH (08:36)
[2017-02-12] MEDS: glipiZIDE 5 MG TABLET PO SCH (08:36)
[2017-02-12] MEDS: IRON (CARBONYL) 45 MG TABLET PO SCH ×2 (08:36→20:58)
[2017-02-12] MEDS: COLLAGENASE OINT 30 GM TUBE TOP SCH (08:36)
[2017-02-12] MEDS: DESITIN 4OZ/NYSTATIN 15 GRAM MIXTURE PASTE TOP SCH ×2 (08:36→21:03)
[2017-02-12] MEDS: CARVEDILOL 25 MG TABLET PO SCH ×2 (08:36→18:54)
[2017-02-12] MEDS: OMEGA 3 ACID ETHYL ESTERS 1 GM CAPSULE PO SCH (08:36)
[2017-02-12] MEDS: POTASSIUM CITRATE 10 MEQ TABLET PO SCH (08:36)
[2017-02-12] MEDS: MENTHOL/ZINC OXIDE OINT 71 GM JAR TOP SCH ×2 (08:37→21:03)
[2017-02-12] MEDS: SODIUM HYPOCHLORITE 0.25% IRRIG 473 ML BOTTLE TOP SCH (08:37)
[2017-02-12] MEDS: GEMFIBROZIL 600 MG TABLET PO SCH ×2 (08:37→18:54)
[2017-02-12] MEDS: FLUTICASONE 50 MCG NASAL SPRAY 16 GM BOTTLE BOTH NARES SCH (08:37)
[2017-02-12] MEDS: NYSTATIN CREAM 15 GM TUBE TOP SCH ×3 (08:37→21:03)
[2017-02-12] MEDS ORDERED: FUROSEMIDE 40 MG/4 ML VIAL IV ONE (08:47)
[2017-02-12] MEDS: MONTELUKAST 10 MG TABLET PO SCH (20:58)
[2017-02-12] MEDS: DOCUSATE SODIUM 100 MG CAPSULE PO SCH (20:59)
[2017-02-12] MEDS: traZODone 50 MG TABLET PO SCH (20:59)
[2017-02-12] MEDS: GABAPENTIN 300 MG CAPSULE PO SCH (20:59)
[2017-02-13 05:10] LABS: Basophils # 0.1 10*3/uL (0.0-0.2); Basophils % 0.7 % (0.0-0.8); Eosinophils # 0.3 10*3/uL (0.0-0.87); Eosinophils % 3.2 % (0.00-10.9); Hematocrit 29.3 VOL% (35.7-47.0); Hemoglobin 9.4 GM/DL (12.0-16.0); Immature Granulocytes % 0.3 %; Immature Granulocytes Absolute 0.03 #; Lymphocytes # 2.7 10*3/uL (1.4-4.0); Mean Corpuscular HGB Conc 32.1 GM/DL (32-36); Mean Corpuscular Hemoglobin 29 PG (27-34); Mean Corpuscular Volume 89.1 FL (87-102); Monocytes # 1.7 10*3/uL (0.11-0.8); Monocytes % 19.7 % (1.7-12.7); Neutrophils # 3.9 10*3/uL (1.4-7.4); Neutrophils % 45.1 % (38.7-73.9); Platelet Count 423 T/CUMM (130-400); Red Blood Count 3.29 MC/CUMM (3.8-5.5); White Blood Count 8.6 T/CUMM (4-12)
[2017-02-13 05:25] LABS: Calcium 8.2 MG/DL (8.5-10.1); Osmolality,Calculated 287.3 MOS/KG (273-304); Potassium 4.4 MMOL/L (3.5-5.1)
[2017-02-13 06:17] LABS: Anisocytosis 1+; Band Neutrophils 6 % (0-10); Eosinophils 2 % (0-10); Lymphocytes 25 % (20-55); Metamyelocytes 1 %; Myelocytes 2 %; Segmented Neutrophils 59 % (50-85); Total Cells Counted 100
[2017-02-13 06:18] LABS: Hypochromasia 1+; Platelet Estimate Normal
[2017-02-13] MEDS: IPRATROPIUM 500 MCG/2.5 ML NEB RESP TX SCH (07:04)
[2017-02-13] MEDS: POTASSIUM CITRATE 10 MEQ TABLET PO SCH (09:59)
[2017-02-13] MEDS: amLODIPine 5 MG TABLET PO SCH (09:59)
[2017-02-13] MEDS: GEMFIBROZIL 600 MG TABLET PO SCH ×2 (09:59→16:33)
[2017-02-13] MEDS: PANTOPRAZOLE 40 MG TABLET PO SCH (09:59)
[2017-02-13] MEDS: SIMETHICONE CHEW 80 MG TABLET PO PRN (09:59)
[2017-02-13] MEDS: IRON (CARBONYL) 45 MG TABLET PO SCH ×2 (09:59→22:20)
[2017-02-13] MEDS: PRAVASTATIN 40 MG TABLET PO SCH (09:59)
[2017-02-13] MEDS: URSODIOL 300 MG CAPSULE PO SCH ×2 (09:59→22:12)
[2017-02-13] MEDS: CARVEDILOL 25 MG TABLET PO SCH ×2 (09:59→16:33)
[2017-02-13] MEDS: CETIRIZINE 10 MG TABLET PO SCH (09:59)
[2017-02-13] MEDS: INSULIN LISPRO 100 UNIT/ML SUBCUT SCH ×4 (10:00→22:19)
[2017-02-13] MEDS: OMEGA 3 ACID ETHYL ESTERS 1 GM CAPSULE PO SCH (10:00)
[2017-02-13] MEDS: MENTHOL/ZINC OXIDE OINT 71 GM JAR TOP SCH ×2 (10:00→22:21)
[2017-02-13] MEDS: FLUTICASONE 50 MCG NASAL SPRAY 16 GM BOTTLE BOTH NARES SCH (10:00)
[2017-02-13] MEDS: FUROSEMIDE 20 MG/2 ML VIAL IV SCH ×3 (10:00→22:14)
[2017-02-13] MEDS: glipiZIDE 5 MG TABLET PO SCH (10:00)
[2017-02-13] MEDS: SODIUM HYPOCHLORITE 0.25% IRRIG 473 ML BOTTLE TOP SCH (10:00)
[2017-02-13] MEDS: ASCORBIC ACID 500 MG TABLET PO SCH ×2 (10:00→22:13)
[2017-02-13] MEDS: FLUCONAZOLE 100 MG TABLET PO SCH (10:00)
[2017-02-13] MEDS: NYSTATIN CREAM 15 GM TUBE TOP SCH ×3 (10:00→22:21)
[2017-02-13] MEDS: DESITIN 4OZ/NYSTATIN 15 GRAM MIXTURE PASTE TOP SCH ×2 (10:03→22:21)
[2017-02-13] MEDS: COLLAGENASE OINT 30 GM TUBE TOP SCH (10:03)
[2017-02-13] MEDS: diphenhydrAMINE CAP 25 MG CAPSULE PO PRN ×2 (13:31→22:12)
[2017-02-13] MEDS: MONTELUKAST 10 MG TABLET PO SCH (22:12)
[2017-02-13] MEDS: DOCUSATE SODIUM 100 MG CAPSULE PO SCH (22:13)
[2017-02-13] MEDS: GABAPENTIN 300 MG CAPSULE PO SCH (22:13)
[2017-02-13] MEDS: traZODone 50 MG TABLET PO SCH (22:23)
[2017-02-14] MEDS: FUROSEMIDE 20 MG/2 ML VIAL IV SCH (03:06)
[2017-02-14 04:09] LABS: Magnesium 1.5 MG/DL (1.8-2.4); Osmolality,Calculated 288.3 MOS/KG (273-304); Potassium 4.5 MMOL/L (3.5-5.1)
[2017-02-14 04:10] LABS: Basophils # 0.1 10*3/uL (0.0-0.2); Basophils % 0.7 % (0.0-0.8); Eosinophils # 0.4 10*3/uL (0.0-0.87); Hematocrit 30.5 VOL% (35.7-47.0); Hemoglobin 10.2 GM/DL (12.0-16.0); Immature Granulocytes % 0.3 %; Immature Granulocytes Absolute 0.03 #; Lymphocytes # 3.2 10*3/uL (1.4-4.0); Lymphocytes % 34.6 % (21.3-54.2); Mean Corpuscular HGB Conc 33.4 GM/DL (32-36); Mean Corpuscular Hemoglobin 29 PG (27-34); Mean Corpuscular Volume 87.9 FL (87-102); Mean Platelet Volume 10.1 FL (9.6-12.0); Monocytes # 1.6 10*3/uL (0.11-0.8); Monocytes % 17.2 % (1.7-12.7); Neutrophils % 43.2 % (38.7-73.9); Platelet Count 448 T/CUMM (130-400); Red Blood Count 3.47 MC/CUMM (3.8-5.5); Red Cell Distribution Width 15.6 % (9.3-17.3); White Blood Count 9.1 T/CUMM (4-12)
[2017-02-14 05:04] LABS: Band Neutrophils 2 % (0-10); Eosinophils 5 % (0-10); Lymphocytes 46 % (20-55); Platelet Estimate Normal; Segmented Neutrophils 43 % (50-85); Total Cells Counted 100
[2017-02-14] MEDS: IPRATROPIUM 500 MCG/2.5 ML NEB RESP TX SCH (07:00)
[2017-02-14] MEDS: OMEGA 3 ACID ETHYL ESTERS 1 GM CAPSULE PO SCH (08:45)
[2017-02-14] MEDS: SIMETHICONE CHEW 80 MG TABLET PO PRN (08:45)
[2017-02-14] MEDS: glipiZIDE 5 MG TABLET PO SCH (08:45)
[2017-02-14] MEDS: ASCORBIC ACID 500 MG TABLET PO SCH ×2 (08:45→22:45)
[2017-02-14] MEDS: FUROSEMIDE 20 MG TABLET PO SCH ×2 (08:46→16:48)
[2017-02-14] MEDS: FLUCONAZOLE 100 MG TABLET PO SCH (08:46)
[2017-02-14] MEDS: URSODIOL 300 MG CAPSULE PO SCH ×2 (08:46→22:44)
[2017-02-14] MEDS: PRAVASTATIN 40 MG TABLET PO SCH (08:46)
[2017-02-14] MEDS: PANTOPRAZOLE 40 MG TABLET PO SCH (08:46)
[2017-02-14] MEDS: CETIRIZINE 10 MG TABLET PO SCH (08:46)
[2017-02-14] MEDS: amLODIPine 5 MG TABLET PO SCH (08:46)
[2017-02-14] MEDS: CARVEDILOL 25 MG TABLET PO SCH ×2 (08:46→16:49)
[2017-02-14] MEDS: POTASSIUM CITRATE 10 MEQ TABLET PO SCH (08:46)
[2017-02-14] MEDS: GEMFIBROZIL 600 MG TABLET PO SCH ×2 (08:46→16:48)
[2017-02-14] MEDS: diphenhydrAMINE CAP 25 MG CAPSULE PO PRN (08:47)
[2017-02-14] MEDS: DESITIN 4OZ/NYSTATIN 15 GRAM MIXTURE PASTE TOP SCH ×2 (08:59→22:47)
[2017-02-14] MEDS: SODIUM HYPOCHLORITE 0.25% IRRIG 473 ML BOTTLE TOP SCH (08:59)
[2017-02-14] MEDS: COLLAGENASE OINT 30 GM TUBE TOP SCH (08:59)
[2017-02-14] MEDS: FLUTICASONE 50 MCG NASAL SPRAY 16 GM BOTTLE BOTH NARES SCH (08:59)
[2017-02-14] MEDS: NYSTATIN CREAM 15 GM TUBE TOP SCH ×3 (08:59→22:47)
[2017-02-14] MEDS: INSULIN LISPRO 100 UNIT/ML SUBCUT SCH ×4 (09:00→22:46)
[2017-02-14] MEDS ORDERED: MOISTURIZING CREAM (EUCERIN) 113 GM JAR TOP PRN (12:09)
[2017-02-14] MEDS: MENTHOL/ZINC OXIDE OINT 71 GM JAR TOP SCH ×2 (16:54→22:46)
[2017-02-14] MEDS: IRON (CARBONYL) 45 MG TABLET PO SCH ×2 (16:54→22:45)
[2017-02-14] MEDS ORDERED: diphenhydrAMINE 50 MG/1 ML VIAL IV ONE (19:01)
[2017-02-14] MEDS: GABAPENTIN 300 MG CAPSULE PO SCH (22:44)
[2017-02-14] MEDS: MONTELUKAST 10 MG TABLET PO SCH (22:44)
[2017-02-14] MEDS: ZALEPLON 5 MG CAPSULE PO PRN (22:44)
[2017-02-14] MEDS: DOCUSATE SODIUM 100 MG CAPSULE PO SCH (22:45)
[2017-02-14] MEDS: traZODone 50 MG TABLET PO SCH (22:45)
[2017-02-15] MEDS: IPRATROPIUM 500 MCG/2.5 ML NEB RESP TX SCH (07:18)
[2017-02-15] MEDS: ASCORBIC ACID 500 MG TABLET PO SCH ×2 (09:20→21:38)
[2017-02-15] MEDS: amLODIPine 5 MG TABLET PO SCH (09:20)
[2017-02-15] MEDS: URSODIOL 300 MG CAPSULE PO SCH ×2 (09:20→21:37)
[2017-02-15] MEDS: CARVEDILOL 25 MG TABLET PO SCH ×2 (09:20→17:03)
[2017-02-15] MEDS: FUROSEMIDE 20 MG TABLET PO SCH ×2 (09:20→17:02)
[2017-02-15] MEDS: PRAVASTATIN 40 MG TABLET PO SCH (09:20)
[2017-02-15] MEDS: IRON (CARBONYL) 45 MG TABLET PO SCH ×2 (09:20→21:39)
[2017-02-15] MEDS: OMEGA 3 ACID ETHYL ESTERS 1 GM CAPSULE PO SCH (09:21)
[2017-02-15] MEDS: GEMFIBROZIL 600 MG TABLET PO SCH ×2 (09:21→17:03)
[2017-02-15] MEDS: PANTOPRAZOLE 40 MG TABLET PO SCH (09:21)
[2017-02-15] MEDS: CETIRIZINE 10 MG TABLET PO SCH (09:21)
[2017-02-15] MEDS: glipiZIDE 5 MG TABLET PO SCH (09:21)
[2017-02-15] MEDS: NYSTATIN CREAM 15 GM TUBE TOP SCH ×3 (09:27→21:38)
[2017-02-15] MEDS: SODIUM HYPOCHLORITE 0.25% IRRIG 473 ML BOTTLE TOP SCH (09:27)
[2017-02-15] MEDS: MENTHOL/ZINC OXIDE OINT 71 GM JAR TOP SCH ×2 (09:27→21:38)
[2017-02-15] MEDS: FLUTICASONE 50 MCG NASAL SPRAY 16 GM BOTTLE BOTH NARES SCH (09:28)
[2017-02-15] MEDS: INSULIN LISPRO 100 UNIT/ML SUBCUT SCH ×4 (09:28→21:39)
[2017-02-15] MEDS: DESITIN 4OZ/NYSTATIN 15 GRAM MIXTURE PASTE TOP SCH ×2 (09:28→21:38)
[2017-02-15] MEDS: COLLAGENASE OINT 30 GM TUBE TOP SCH (09:28)
[2017-02-15] MEDS: POTASSIUM CITRATE 10 MEQ TABLET PO SCH (09:28)
[2017-02-15] MEDS: ACETAMINOPHEN 325 MG TABLET PO PRN (11:44)
[2017-02-15] MEDS: MONTELUKAST 10 MG TABLET PO SCH (21:37)
[2017-02-15] MEDS: GABAPENTIN 300 MG CAPSULE PO SCH (21:37)
[2017-02-15] MEDS: DOCUSATE SODIUM 100 MG CAPSULE PO SCH (21:38)
[2017-02-15] MEDS: ZALEPLON 5 MG CAPSULE PO PRN (21:38)
[2017-02-15] MEDS: traZODone 50 MG TABLET PO SCH (21:38)
[2017-02-16] MEDS: IPRATROPIUM 500 MCG/2.5 ML NEB RESP TX SCH (07:07)
[2017-02-16] MEDS: FUROSEMIDE 20 MG TABLET PO SCH (09:20)
[2017-02-16] MEDS: PANTOPRAZOLE 40 MG TABLET PO SCH (09:21)
[2017-02-16] MEDS: POTASSIUM CITRATE 10 MEQ TABLET PO SCH (09:21)
[2017-02-16] MEDS: CARVEDILOL 25 MG TABLET PO SCH (09:21)
[2017-02-16] MEDS: CETIRIZINE 10 MG TABLET PO SCH (09:21)
[2017-02-16] MEDS: GEMFIBROZIL 600 MG TABLET PO SCH (09:21)
[2017-02-16] MEDS: amLODIPine 5 MG TABLET PO SCH (09:21)
[2017-02-16] MEDS: ASCORBIC ACID 500 MG TABLET PO SCH (09:21)
[2017-02-16] MEDS: glipiZIDE 5 MG TABLET PO SCH (09:21)
[2017-02-16] MEDS: OMEGA 3 ACID ETHYL ESTERS 1 GM CAPSULE PO SCH (09:21)
[2017-02-16] MEDS: PRAVASTATIN 40 MG TABLET PO SCH (09:21)
[2017-02-16] MEDS: URSODIOL 300 MG CAPSULE PO SCH (09:21)
[2017-02-16] MEDS: INSULIN LISPRO 100 UNIT/ML SUBCUT SCH ×2 (09:22→13:21)
[2017-02-16] MEDS: FLUTICASONE 50 MCG NASAL SPRAY 16 GM BOTTLE BOTH NARES SCH (09:22)
[2017-02-16] MEDS: NYSTATIN CREAM 15 GM TUBE TOP SCH (09:22)
[2017-02-16] MEDS: DESITIN 4OZ/NYSTATIN 15 GRAM MIXTURE PASTE TOP SCH (09:23)
[2017-02-16] MEDS: IRON (CARBONYL) 45 MG TABLET PO SCH (09:23)
[2017-02-16] MEDS: SODIUM HYPOCHLORITE 0.25% IRRIG 473 ML BOTTLE TOP SCH (13:20)
[2017-02-16] MEDS: COLLAGENASE OINT 30 GM TUBE TOP SCH (13:22)
[2017-02-16] MEDS: MENTHOL/ZINC OXIDE OINT 71 GM JAR TOP SCH (13:22)
[2017-02-16 15:55] VITALS: BP 128/68
== END 2017-02-16 17:05 | disposition swing bed (61) | DRG 981 ==
LOC: N.5E 10:34 → SUATTDRO 10:34
PROVIDERS: ADMIT Internal Medicine; ATTEND Internal Medicine Geriatric Medicine
PROC: ERCPWSP (ICD-10-PCS; 2017-02-01 09:35)